=== PATIENT | male | born 1955 | race Caucasian/White ===

== ENCOUNTER 2016-07-11 12:55 | Day surgery (SDC) | payer MEDICARE, OTHER ==
[~2016-07-11 12:55] MED LIST: DIPHENHYDRAMINE HCL 50 MG/ML VIAL ONE; EPINEPHRINE INJ 1 MG/10 ML DISP.SYRIN ONE; FLUMAZENIL INJ 0.5 MG/5 ML VIAL IV ONE; GLUCAGON,HUMAN RECOMB 1 MG INJ ONE; NALOXONE HCL INJ/PF 0.4 MG/1 ML SDV ONE; ONDANSETRON HCL INJ/PF 4 MG/2 ML SDV ONE
[2016-07-11] MEDS: MIDAZOLAM 2 MG/2 ML INJ ONE ×2 (13:20→13:26)
[2016-07-11] MEDS: FENTANYL CITRATE INJ/PF 100 MCG/2 ML AMPUL ONE ×3 (13:22→13:28)
--- NOTE | 2016-07-11 13:38 | Operative Report ---
Operative Report DATE OF SURGERY: 07/11/16 Operative Report: The risks benefits and alternatives of the procedure explained to the patient in detail and informed consent is obtained. A GIF Olympus video scope was inserted into the patient's mouth and hypopharynx, the esophagus is identified intubated and insufflated, the scope was then advanced through the esophagus stomach and duodenum ,retroflexion maneuver is done, the esophagus stomach and first and second portions of the duodenum examined PREOPERATIVE DIAGNOSIS: Decreased appetite. Weight loss POSTOPERATIVE DIAGNOSIS: gastritis status post biopsy. Esophagitis versus Mccall's status post biopsy OPERATION: EGD with biopsy SURGEON: VIC WILLINGHAM ANESTHESIA: Moderate Sedation - 4 mg of Versed, 100 mcg of fentanyl. Conscious sedation monitoring time 30 minutes. TISSUE REMOVED OR ALTERED: Gastric specimen obtained to rule out Helicobacter pylori COMPLICATIONS: None. ESTIMATED BLOOD LOSS: None. INTRAOPERATIVE FINDINGS: Esophagitis versus Mccall's. Gastritis. First and second portions of the duodenum normal PROCEDURE: Patient tolerated the procedure well. No immediate postprocedure complications are noted. Patient discharged in good condition. Discharge date 07/11/2016. Discharge diet: Regular. Discharge activity: Regular. 2-3 week follow-up to discuss findings. We will wait on biopsies. Patient is instructed to call the office or proceed to the emergency room should there be any further problems or questions.
[2016-07-11 14:36] VITALS: BP 110/67
== END 2016-07-11 14:30 | disposition home or self-care (01) ==
LOC: END 12:55
PROVIDERS: ATTEND Internal Medicine Gastroenterology
PROC: 0DB58ZX Excision of Esophagus, Via Natural or Artificial Opening Endoscopic, Diagnostic (ICD-10-PCS; 2016-07-11)
PROC: 0DB68ZX Excision of Stomach, Via Natural or Artificial Opening Endoscopic, Diagnostic (ICD-10-PCS; principal; 2016-07-11 14:00)
DX: K29.50 Unspecified chronic gastritis without bleeding (principal); K20.9 Esophagitis, unspecified; I10 Essential (primary) hypertension; G89.29 Other chronic pain; Z79.891 Long term (current) use of opiate analgesic; Z79.899 Other long term (current) drug therapy
CPT/HCPCS: 43239; 88342 ×2; 88305 ×2; J2250; J3010; J0171; J1200; J1610; J2310; J2405; J3490

== ENCOUNTER → 2016-07-27 | Outpatient (CLI) | payer MEDICARE, OTHER ==
--- NOTE | 2016-07-27 13:13 | RADIOLOGY REPORT (SQ) ---
EXAM DESCRIPTION: CT LUNG CANCER SCREENING COMPLETED DATE/TIME: 07/27/2016 12:14 pm REASON FOR STUDY: ENCOUNTER FOR MALIGNANT NEOPLASM OF LUNG Z72.0 TOBACCO USE Z12.2 ENCNTR SCREEN F OR MALIGNANT NEOPLASM OF RESPIRATORY OR Has the patient had a Chest CT scan within the past year? No Was the patient offered tobacco cessation counseling? Yes Was the patient engaged in shared decision making for this test? Yes Does the patient have signs or symptoms of Lung Cancer? No Is the patient a smoker? Yes How many packs per year? 182 How many years since quitting smoking? Not applicable Patients age: 60 COMPARISON: None. TECHNIQUE: Low Dose CT scan performed of the chest without intravenous contrast for purposes of scre ening for lung cancer. Images reviewed with lung, soft tissue and bone windows. Reconstructed coron al and sagittal MPR images reviewed. All images stored on PACS. All CT scanners at this facility use dose modulation, iterative reconstruction, and/or weight based d osing when appropriate to reduce radiation dose to as low as reasonably achievable (ALARA). [facility]: Dose Right [facility]: CareDose [facility]: Dose Right [facility]: Teradose 4D [facility]: [employer] RADIATION DOSE: Up-to-date CT equipment and radiation dose reduction techniques were employed. CTDIv ol: 2.1 mGy. DLP: 91 mGy-cm. mGy. . LIMITATIONS: No technical limitations. FINDINGS: LUNGS AND PLEURA: No masses or nodules. No pleural effusions or calcifications. No pne umothorax. No scarring or interstitial changes. HILAR AND MEDIASTINAL STRUCTURES: No identified masses. No abnormal nodes. HEART AND VASCULAR STRUCTURES: No aortic aneurysm. No pericardial effusion. No cardiac devices. CORONARY ARTERY CALCIFICATIONS: No significant calcifications. UPPER ABDOMEN: No significant findings. THYROID AND OTHER SOFT TISSUES: No masses. No adenopathy. BONY STRUCTURES: No significant finding. OTHER: No other significant findings. IMPRESSION: NO SIGNIFICANT FINDING ON NON-CONTRASTED CHEST CT. NO OTHER CLINICALLY SIGNIFICANT/POTENTIALLY CLINICALLY SIGNIFICANT FINDINGS LUNGRADS: LUNGRADS: 1 NEGATIVE. NO NODULES, OR DEFINITELY BENIGN NODULES MODIFIER: NONE RECOMMENDATION: Continue annual screening with LDCT in 12 months. COMMENT: CRITERIA: No lung nodules. Nodules with specific calcifications: Complete, central, popcorn, concentric rings and fat containin g nodules. TECHNICAL DOCUMENTATION: JOB ID: [id number] Quality ID # [id number]: Final reports with documentation of one or more dose reduction techniques (e.g., Au tomated exposure control, adjustment of the mA and/or kV according to patient size, use of iterative reconstruction technique) 2010 [facility]
== END ==
LOC: RAD 12:00
PROVIDERS: ATTEND Internal Medicine
DX: Z12.2 Encounter for screening for malignant neoplasm of respiratory organs (principal); F17.210 Nicotine dependence, cigarettes, uncomplicated
CPT/HCPCS: G0297

== ENCOUNTER 2017-01-24 11:18 | Day surgery (SDC) | payer MEDICARE, OTHER ==
[~2017-01-24 11:18] MED LIST changes: +CHONDR SU A NA/HYALUR INTRAOC KIT (SURGICARE) ONE; -DIPHENHYDRAMINE HCL 50 MG/ML VIAL ONE; -EPINEPHRINE INJ 1 MG/10 ML DISP.SYRIN ONE; +EPINEPHRINE INJ/PF 1 MG/1 ML AMPULE ONE; -FLUMAZENIL INJ 0.5 MG/5 ML VIAL IV ONE; -GLUCAGON,HUMAN RECOMB 1 MG INJ ONE; +KETOROLAC TROMETHAMINE 0.45% 4 DROP/0.4 ML DROPERETTE OD PRN; +LIDOCAINE 1% INJ-PF (10 MG/ML) 30 ML SDV ONE; -NALOXONE HCL INJ/PF 0.4 MG/1 ML SDV ONE; -ONDANSETRON HCL INJ/PF 4 MG/2 ML SDV ONE; +TOBRAMYCIN SULFATE/DEXAMETH OPH OINTMENT 3.5 GM ONE
[2017-01-24] MEDS: BESIFLOXACIN HCL 0.6% OPH SUSP 5 ML BOTTLE OD PRN ×3 (12:02→13:00)
[2017-01-24] MEDS: CYCLOPENTOLATE 0.2%/PHENYLEPHRINE 1% OPH SOLN 2 ML OD PRN ×3 (12:02→12:22)
[2017-01-24] MEDS: TROPICAMIDE 1% OPH SOLN 3 ML OD PRN ×3 (12:02→12:22)
[2017-01-24] MEDS: TETRACAINE HCL 0.5% OPH SOLN 0.6 ML DROPERETTE OD PRN ×3 (12:03→12:44)
[2017-01-24] MEDS ORDERED: MIDAZOLAM 2 MG/2 ML INJ ONE ×2 (12:27)
== END 2017-01-24 13:47 | disposition home or self-care (01) ==
LOC: SC 11:18
PROVIDERS: ATTEND Ophthalmology
PROC: 08RJ3JZ Replacement of Right Lens with Synthetic Substitute, Percutaneous Approach (ICD-10-PCS; principal; 2017-01-24 12:45)
DX: H25.11 Age-related nuclear cataract, right eye (principal); I10 Essential (primary) hypertension; G89.29 Other chronic pain; F17.200 Nicotine dependence, unspecified, uncomplicated; Z79.899 Other long term (current) drug therapy
CPT/HCPCS: 66984; V2630; J2250; J3490 ×3; A9270; J0171; 142

== ENCOUNTER 2017-02-07 07:14 | Day surgery (SDC) | payer MEDICARE, OTHER ==
[~2017-02-07 07:14] MED LIST changes: -KETOROLAC TROMETHAMINE 0.45% 4 DROP/0.4 ML DROPERETTE OD PRN; +KETOROLAC TROMETHAMINE 0.45% 4 DROP/0.4 ML DROPERETTE OS PRN
[2017-02-07] MEDS: TROPICAMIDE 1% OPH SOLN 3 ML OS PRN ×3 (07:24→07:53)
[2017-02-07] MEDS: CYCLOPENTOLATE 0.2%/PHENYLEPHRINE 1% OPH SOLN 2 ML OS PRN ×3 (07:24→07:53)
[2017-02-07] MEDS: BESIFLOXACIN HCL 0.6% OPH SUSP 5 ML BOTTLE OS PRN ×3 (07:25→08:35)
[2017-02-07] MEDS: TETRACAINE HCL 0.5% OPH SOLN 0.6 ML DROPERETTE OS PRN ×3 (07:26→08:09)
[2017-02-07] MEDS ORDERED: FENTANYL CITRATE INJ/PF 100 MCG/2 ML AMPUL ONE (08:08)
[2017-02-07] MEDS ORDERED: MIDAZOLAM 2 MG/2 ML INJ ONE ×3 (08:08→08:18)
== END 2017-02-07 09:12 | disposition home or self-care (01) ==
LOC: SC 07:14
PROVIDERS: ATTEND Ophthalmology
PROC: 08RK3JZ Replacement of Left Lens with Synthetic Substitute, Percutaneous Approach (ICD-10-PCS; principal; 2017-02-07 08:15)
DX: H25.12 Age-related nuclear cataract, left eye (principal); Z98.41 Cataract extraction status, right eye; F17.210 Nicotine dependence, cigarettes, uncomplicated; I10 Essential (primary) hypertension; Z79.899 Other long term (current) drug therapy
CPT/HCPCS: 66984; V2630; J2250; J3490 ×3; A9270; J0171; J3010; 142

== ENCOUNTER 2017-03-20 06:01 | Day surgery (SDC) | payer MEDICARE, OTHER ==
[2017-03-13 10:13] LABS: ABSOLUTE BASOPHILS # (AUTO) 0.1 10^3/uL (0.0-0.2); ABSOLUTE EOSINOPHILS # (AUTO) 0.2 10^3/uL (0.0-0.6); ABSOLUTE LYMPHOCYTES (AUTO) 1.5 10^3/uL (0.5-4.7); ABSOLUTE MONOCYTES (AUTO) 0.8 10^3/uL (0.1-1.4); ABSOLUTE NEUT (AUTO) 5.4 10^3/uL (1.7-8.2); BASOPHILS % (AUTO) 0.7 % (0-2); EOSINOPHILS % (AUTO) 2.1 % (0-6); HEMOGLOBIN 13.5 g/dL (13.5-17.0); LYMPHOCYTES % (AUTO) 19.1 % (13-45); MEAN CORPUSCULAR HGB CONC 34.7 g/dL (32.0-36.0); MEAN CORPUSCULAR VOLUME 107 fl (80-97); PLATELET COUNT 238 10^3/uL (150-450); RED BLOOD COUNT 3.66 10^6/uL (4.35-5.55); RED CELL DISTRIBUTION WIDTH 14.6 % (11.5-14.0); SEGMENTED NEUTROPHILS % (AUTO) 68.1 % (42-78); TOTAL CELLS COUNTED % (AUTO) 100 %; WHITE BLOOD COUNT 7.9 10^3/uL (4.0-10.5)
[2017-03-13 10:31] LABS: APPEARANCE,URINE CLEAR; BILIRUBIN,URINE NEGATIVE (NEGATIVE); COLOR,URINE YELLOW; GLUCOSE, URINE NEGATIVE (NEGATIVE); KETONES,URINE NEGATIVE (NEGATIVE); LEUKOCYTE ESTERASE,URINE NEGATIVE (NEGATIVE); NITRITE,URINE NEGATIVE (NEGATIVE); PROTEIN,URINE NEGATIVE (NEGATIVE); URINE SPECIFIC GRAVITY 1.016; UROBILINOGEN,URINE NEGATIVE mg/dL (<2.0)
[2017-03-13 10:39] LABS: ANION GAP 9 (5-19); BLOOD UREA NITROGEN 21 mg/dL (7-20); CALCIUM 10.3 mg/dL (8.4-10.2); CARBON DIOXIDE 32 mmol/L (22-30); CHLORIDE 94 mmol/L (98-107); GLUCOSE 114 mg/dL (75-110); POTASSIUM 4.9 mmol/L (3.6-5.0); SODIUM 134.5 mmol/L (137-145)
--- NOTE | 2017-03-13 12:09 | RADIOLOGY REPORT (SQ) ---
EXAM DESCRIPTION: CHEST PA/LATERAL COMPLETED DATE/TIME: 03/13/2017 10:55 am REASON FOR STUDY: PRE OP G56.01 CARPAL TUNNEL SYNDROME, RIGHT UPPER LIMB G56.21 LESION OF ULNAR NE RVE, RIGHT UPPER LIMB COMPARISON: None. NUMBER OF VIEWS: Two view. TECHNIQUE: Frontal and lateral radiographic views of the chest acquired. LIMITATIONS: None. FINDINGS: LUNGS AND PLEURA: No opacities, masses or pneumothorax. No pleural effusion. Attenuated bl ood vessels and flattened stevan-diaphragms. MEDIASTINUM AND HILAR STRUCTURES: No masses. No contour abnormalities. HEART AND VASCULAR STRUCTURES: Heart normal in size and contour. No evidence for failure. BONES: No acute findings. HARDWARE: None in the chest. OTHER: No other significant finding. IMPRESSION: COPD. NO ACUTE RADIOGRAPHIC FINDING IN THE CHEST. TECHNICAL DOCUMENTATION: JOB ID: [id number] 1995 [employer]- All Rights Reserved
--- NOTE | 2017-03-13 13:00 | EKG REPORT ---
SEVERITY:- NORMAL ECG - SINUS RHYTHM : Confirmed by: Aryan Morales MD 13-Mar-2017 13:00:13
[~2017-03-20 06:01] MED LIST changes: +CEFAZOLIN 2 GM/D5W RTU 2 GM/50 ML RTUPB IV PRN; -CHONDR SU A NA/HYALUR INTRAOC KIT (SURGICARE) ONE; -EPINEPHRINE INJ/PF 1 MG/1 ML AMPULE ONE; -KETOROLAC TROMETHAMINE 0.45% 4 DROP/0.4 ML DROPERETTE OS PRN; +LACTATED RINGERS 1000 ML IV PRN; +LIDOCAINE 0.5% INJ-PF (5 MG/ML) 50 ML SDV SUBCUT PRN; -LIDOCAINE 1% INJ-PF (10 MG/ML) 30 ML SDV ONE; -TOBRAMYCIN SULFATE/DEXAMETH OPH OINTMENT 3.5 GM ONE
[2017-03-20] MEDS ORDERED: BUPIVACAINE HCL 0.5 % INJ/PF 30 ML SDV ONE (06:35)
[2017-03-20] MEDS ORDERED: LIDOCAINE 2% INJ-PF (20 MG/ML) 10 ML AMPUL ONE (06:36)
[2017-03-20] MEDS ORDERED: FENTANYL CITRATE INJ/PF 100 MCG/2 ML AMPUL ONE ×2 (06:36)
[2017-03-20] MEDS ORDERED: ACETAMINOPHEN 100 ML IV ONE (06:37)
[2017-03-20] MEDS ORDERED: MIDAZOLAM 2 MG/2 ML INJ ONE (06:37)
[2017-03-20] MEDS ORDERED: PROPOFOL INJ 200 MG/20 ML VIAL IV ONE (06:37)
[2017-03-20] MEDS ORDERED: ONDANSETRON HCL INJ/PF 4 MG/2 ML SDV ONE (06:37)
[2017-03-20] MEDS ORDERED: DIPHENHYDRAMINE HCL 50 MG/ML VIAL IV PRN (08:17)
[2017-03-20] MEDS ORDERED: MORPHINE SULFATE 10 MG/ML INJ IV PRN ×2 (08:17→09:09)
[2017-03-20] MEDS ORDERED: PROMETHAZINE HCL INJ 25 MG/1 ML VIAL IV PRN ×2 (08:17)
[2017-03-20] MEDS ORDERED: ONDANSETRON HCL INJ/PF 4 MG/2 ML SDV IV PRN ×2 (08:17→09:09)
[2017-03-20] MEDS ORDERED: OXYCODONE-ACETAMINOPHEN 5-325 MG TABLET PO PRN ×3 (08:17→09:09)
[2017-03-20] MEDS ORDERED: FENTANYL CITRATE INJ/PF 100 MCG/2 ML AMPUL IV PRN ×3 (08:17)
[2017-03-20] MEDS ORDERED: MEPERIDINE HCL/PF INJ 25 MG/1 ML DISP.SYRIN IV PRN (08:17)
--- NOTE | 2017-03-20 09:08 | PDOC DISCHARGE SUMMARY ---
Discharge Summary (SDC) - Discharge Final Diagnosis: Right carpal/cubital tunnel Date of Surgery: 03/20/17 Discharge Date: 03/20/17 Condition: Good Treatment or Instructions: Schedule Follow Up w/ Dr. Giovanni Vargas @ [facility] for [facility] to be seen in 10-14 days or as scheduled [place]: [place]: [place]: May remove dressing on postop day #3, keep incision covered and dry. Ice and elevate May begin finger range of motion attempting to make full fist. Stool softener of choice when on pain medication. Prescriptions: Oxycodone HCl/Acetaminophen [Percocet 5-325 mg Tablet] 1 - 2 tab PO ASDIR PRN # 30 tablet PRN Reason: Referrals: TENZIN PETERSEN MD [Primary Care Provider] - Discharge Diet: As Tolerated Respiratory Treatments at Home: Deep Breathing/Coughing Discharge Activity: Balance Activity w/Rest, No Lifting Over 10 Pounds, No Lifting/Push/Pulling Home Care Assistance: None Needed Report the Following to Your Physician Immediately: Fever over 101 Degrees, Unusual Bleeding, Redness, Swelling, Warmth, Drainage-Foul Smelling, Numbness, Tingling Sensation, IV Site Infection Signs
--- NOTE | 2017-03-20 09:09 | Operative Report ---
Operative Report DATE OF SURGERY: 03/20/17 PREOPERATIVE DIAGNOSIS: #1 Right severe ulnar neuropathy/cubital tunnel syndrome. #2 Right Carpal Tunl. syndrome POSTOPERATIVE DIAGNOSIS: Same OPERATION: #1 Right Cubital Tunl. release. #2 Right Open Carpal Tunl. release SURGEON: LIONEL LR ANESTHESIA: GA COMPLICATIONS: None ESTIMATED BLOOD LOSS: Minimal PROCEDURE: Indication for above procedure: 61-year-old male with long-standing history of numbness and tingling along with weakness in his right hand. Patient had clinical examination findings of denervation of his adductor pollicis and intrinsics. Neurodiagnostic testing was done confirming concomitant carpal and cubital tunnel syndrome. At that point discussed treatment options given the severity of patient's neuropathy decision was made to proceed with operative intervention understanding he may not get complete resolution of his symptoms. Risks and benefits were explained patient verbalized understanding consented for the procedure. Procedure In Detail: Patient was seen and evaluated in the preoperative holding area. The RIGHT upper extremity was initialized and marked. Patient received 2g of Ancef IV for bacterial prophylaxis. Patient was taken back to the operative room where transferred to the operative table and placed under general anesthesia. Once they were adequately anesthetized and a nonsterile tourniquet was placed on the upper extremity. A surgical team debriefing was performed ensuring all instrumentation was available, the surgical procedure was discussed with possible concerns reviewed. The upper extremity was prepped with chlorhexidine and alcohol and draped in a sterile fashion. A timeout was done identifying correct patient, procedure and extremity everyone in attendance agree with this and verbalized no concerns. The extremity was exsanguinated the tourniquet was inflated to 250 mmHg. A longitudinal skin incision was made centered over the cubital tunnel. Careful dissection was done through the overlying soft tissues any peripheral vasculature was carefully coagulated with bipolar cautery. The branches of the medial antebrachial cutaneous nerve were identified and protected throughout the entirety of the case. Once within the confines of the cubital tunnel the ulnar nerve was identified at the proximal aspect of the wound. At this level I carefully released a medial portion of the triceps and the medial intermuscular septum freeing the ulnar nerve proximally of any overlying soft tissue compression. I then continued to track the ulnar nerve distally releasing Keen's fascia. At the level of the FCU aponeurosis between the 2 heads of the FCU muscle. The fascia was released once again relieving any external compression from the ulnar nerve distally past the level of the first motor branch. I then freed up the nerve posteriorly ensuring there is no remaining soft tissue bands causing compression. During dissection of the nerve careful attention was directed at avoiding disruption of the ulnar nerve blood supply. The medial portion of the triceps was causing notable compression at the level of the cubital tunnel thus 7 mm of this area was incised to release the compression. Elbow range of motion was then done from full flexion to full extension with full flexion there was no evidence of anterior subluxation of the ulnar nerve from the groove. And thus I determined patient would not require anterior subcutaneous ulnar nerve transposition. I then turned my attention to the carpal tunnel release. Longitudinal skin incision was made just proximal to Sosa's cardinal line in line with the radial border of the ring finger. Sharp dissection was performed down to the palmar fascia. The palmar fascia was then split in line with the skin incision. Via blunt dissection the transverse carpal ligament was identified and split to the adipose just proximal to superficial palmar arch. Under direct visualization the proximal aspect of the transverse carpal ligament was then released including the volar antebrachial fascia. There was significant compression of the ulnar nerve at the level of the wrist flexion crease. Given patient's ulnar neuropathy I then bluntly dissected isolating the ulnar nerve within Guyon's canal. The flexor retinaculum was released and ulnar nerve neurolysed. There is no residual compression of the ulnar nerve appreciated. The wound was then copiously irrigated with normal saline. Skin incision was closed with interrupted 3-0 nylon suture. The tourniquet was then deflated. Compression was made to the wound for 2 minutes. I then identified any peripheral bleeding and carefully coagulated with bipolar cautery. The wound was then irrigated with normal saline. Subcutaneous tissues were closed with interrupted 3-0 Monocryl. Skin was closed with running subcuticular 4-0 Monocryl suture reinforced with Dermabond and Steri-Strips. Soft dressing was placed Sponge counts, instrument counts, needle counts counts were correct. Patient was then awoken from anesthesia. Transferred from the operating room table to the operating room stretcher. There was no intraoperative complications patient tolerated procedure well stable to PACU. Postoperative plan: Patient will follow-up in the office as scheduled which point we will proceed with wound check. Aime may begin gentle range of motion exercises but avoid any heavy lifting at her first postoperative appointment.
[2017-03-20 12:34] VITALS: BP 126/78
== END 2017-03-20 11:00 | disposition home or self-care (01) ==
LOC: OROUT 06:01
PROVIDERS: ATTEND Orthopaedic Surgery
PROC: 01N40ZZ Release Ulnar Nerve, Open Approach (ICD-10-PCS; principal; 2017-03-20 08:00)
PROC: 01N50ZZ Release Median Nerve, Open Approach (ICD-10-PCS; 2017-03-20 08:00)
DX: G56.01 Carpal tunnel syndrome, right upper limb (principal); G56.21 Lesion of ulnar nerve, right upper limb; I10 Essential (primary) hypertension; F17.210 Nicotine dependence, cigarettes, uncomplicated; Z79.899 Other long term (current) drug therapy; Z85.828 Personal history of other malignant neoplasm of skin
CPT/HCPCS: 93005; 36415 ×2; 84132; 85025; 80048; 81001; 71046; 93010; 64718; 64721; J2250; J3490 ×2; J3010; A9270; J2405; J2704; J0690; J0131; 1810

== ENCOUNTER 2017-06-14 07:52 | Day surgery (SDC) | payer MEDICARE, OTHER ==
[2017-06-14 08:43] LABS: INTERNATIONAL RATION (INR) 0.86; PROTHROMBIN TIME 12.2 SEC (11.4-15.4)
[2017-06-14 08:44] LABS: PARTIAL THROMBOPLASTIN TIME 28.4 SEC (23.5-35.8)
[2017-06-14] MEDS ORDERED: LIDOCAINE 1% INJ-PF (10 MG/ML) 30 ML SDV ONE (10:31)
--- NOTE | 2017-06-14 12:29 | RADIOLOGY REPORT (SQ) ---
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 LIMITATIONS: None. PROCEDURE: After written consent and assessment were obtained, the patient was brought into the fluo roscopy room and placed prone on the table. The patient's lower back was prepped in a sterile fashio n and an entry site was selected under live fluoroscopic guidance. The entry site was anesthetized wi th 4 mL of 1% lidocaine. A 22 gauge spinal needle was advanced through the skin and into the thecal sac at the level of L2-3. Contrast was injected into the thecal sac, with a small subdural injection . No further contrast was injected at this level. The right paracentral L4-5 level was localized un joy fluoroscopy. Local lidocaine for skin and soft tissue anesthesia. A 22 gauge spinal needle was successfully placed into the lumbar subarachnoid space and 12 mL of Isovue 0200 hours was injected wi thout complication. Following the procedure the needle was removed and a sterile bandage was placed of the site. CONTRAST: 12 mL Isovue 200 M. IMAGES ACQUIRED: Prone oblique and upright flexion and extension fluoroscopic digital images were obt ained. This was followed by CT of the lumbar spine with sagittal and coronal reconstructions. TECHNIQUE: After performing lumbar myelogram, axial images were acquired through the lumbar spine wi thout intravenous contrast. Images reviewed with lung, soft tissue and bone windows. Reconstructed coronal and sagittal MPR images reviewed. All images stored on PACS. All CT scanners at this facility use dose modulation, iterative reconstruction, and/or weight based d osing when appropriate to reduce radiation dose to as low as reasonably achievable (ALARA). [facility]: Dose Right [facility]: CareDose [facility]: Dose Right [facility]: Teradose 4D [facility]: [employer] FINDINGS: Fluoroscopic images demonstrate symmetric filling of the L4, L5, and S1 nerve roots. Lety ent is post remote prior lumbar fusion without significant central or foraminal encroachment at L4-5 or L5-S1. Transpedicular screws and dorsal fixation plates are present. At fluoroscopy, moderate to high-grade central canal stenosis is seen at L2-3 with effacement of CSF around the lumbar nerve roots. There is poor filling of the proximal bilateral L3 nerve roots. At fluoroscopy no central stenosis is seen at the L1 or L2 levels. Good filling of the L1 and L2 pro ximal nerve roots. At L3-4, there is disc space loss of height without significant central or forami nal encroachment on digital fluoroscopic radiographs. Postmyelogram CT: There is mild streak artifact related to bilateral transpedicular screws and dorsal fixation plates a t L4, L5, and S1. Because of the T12-L1 disc level is unremarkable. No central or foraminal encroachment. Conus is at the mid L1 vertebral body. At L1-2, mild diffuse posterior disc bulge and bony spurring is present with disc space loss of heigh t. Mild bilateral facet and ligament hypertrophy. Borderline central canal narrowing. No significa nt foraminal narrowing. At L2-3, there is a small amount of subdural or epidural contrast in the left spinal canal from unsuc cessful lumbar puncture. This tracks along the dorsal leftward aspect of the L2 vertebral body, cont rast may be in an epidural vein. Elsewhere at L2-3, moderate to high-grade central canal stenosis results from broad diffuse posterior disc bulging, slight retrolisthesis of L2 over L3, prominent dorsal epidural fat, and mild bilateral facet and ligament hypertrophy. This is best shown on axial image 39 and sagittal reconstruction im ages 18 through 25. Mild right foraminal narrowing at L2-3. Moderate left foraminal narrowing with partial effacement of the fat around the exiting left L2 nerve root. At L3-4, there is high-grade disc space loss of height with vacuum phenomenon. Minimal posterior dis c bulge and bony spurring. Bulky bilateral facet hypertrophy left greater than right. No central st enosis. No significant right foraminal narrowing. There is good filling of the right L3 nerve root sleeve. Moderate left foraminal narrowing with very mild truncation of filling of the left L3 nerve root sleeve at this level. At L4-5, patient is post fusion with hardware. No significant central or foraminal encroachment. At L5-S1, patient is post fusion with hardware. Old bilateral laminectomy. No significant central o r foraminal encroachment. IMPRESSION: Moderate to high-grade central canal stenosis at L2-3 COMMENT: Patient medication list reviewed: Yes- Quality ID# [id number]:Eligible professional attests to doc umenting in the medical record they obtained, updated, or reviewed the patient's current medications. TECHNICAL DOCUMENTATION: JOB ID: [id number] Quality ID # 436: Final reports with documentation of one or more dose reduction techniques (e.g., Au tomated exposure control, adjustment of the mA and/or kV according to patient size, use of iterative reconstruction technique) 2010 [employer]- All Rights Reserved Reading location - IP/workstation name: [email or web address]
[2017-06-14 14:18] VITALS: BP 151/78
== END 2017-06-14 13:30 | disposition home or self-care (01) ==
LOC: RAD 07:52
PROVIDERS: ATTEND Physician Assistant
DX: M54.16 Radiculopathy, lumbar region (principal); Z79.01 Long term (current) use of anticoagulants
CPT/HCPCS: 36415; 85610; 85730; 72265; 72132; J3490

== ENCOUNTER 2019-04-24 08:50 | Day surgery (SDC) | payer MEDICARE, OTHER ==
[~2019-04-24 08:50] MED LIST changes: -CEFAZOLIN 2 GM/D5W RTU 2 GM/50 ML RTUPB IV PRN; -LACTATED RINGERS 1000 ML IV PRN; -LIDOCAINE 0.5% INJ-PF (5 MG/ML) 50 ML SDV SUBCUT PRN; +PROPOFOL INJ 200 MG/20 ML VIAL IV ONE
[2019-04-24 11:12] VITALS: BP 134/97
--- NOTE | 2019-04-24 12:08 | Operative Report ---
Operative Report DATE OF SURGERY: 04/24/19 Operative Report: Risk, benefits and alternatives of the procedure including the risk of bleeding, perforation requiring surgery have been explained to the patient in detail and informed consent has been obtained. Patient is placed in a left, lateral decubital position. Timeout was called. Propofol medication is administered. Rectal examination is done which did not reveal any masses, tears or fissures. An Olympus videoscope was introduced into the patient's rectum. Scope was then carefully advanced all the way to the cecum. The cecum was identified by the usual anatomical landmarks including the ileocecal valve as well as the appendiceal office. Photodocumentation is obtained. Scope was then sequentially pulled back via the various segments of the colon including the ascending colon, pancreatic, transverse colon, splenic flexure, descending colon and finally into the rectosigmoid portions of the colon. Retroflexion maneuvers performed. PREOPERATIVE DIAGNOSIS: Change in bowel habits POSTOPERATIVE DIAGNOSIS: Colon polyp in the cecum which removed via snare polypectomy and retrieved. Sigmoid polyp which is removed via snare polypectomy and retrieved. Diverticulosis without any evidence of diverticulitis. internal hemorrhoids. Right side colon inflammation status post biopsy OPERATION: Colonoscopy with snare polypectomy. Colonoscopy with biopsy SURGEON: VIC WILLINGHAM ANESTHESIA: LMAC TISSUE REMOVED OR ALTERED: As noted above. COMPLICATIONS: None. ESTIMATED BLOOD LOSS: None. INTRAOPERATIVE FINDINGS: As noted above. PROCEDURE: Patient tolerated the procedure well. No immediate postprocedure complications are noted. Patient is discharged in good condition. Discharge date 04/24/2019. Discharge diet: Regular. Discharge activity: Regular. 2 to 3-week follow-up to discuss findings. Patient is instructed call the office or proceed to the emergency room Should there be any further problems or questions. 3 to 5-year surveillance colonoscopy.
== END 2019-04-24 11:06 | disposition home or self-care (01) ==
LOC: END 08:50
PROVIDERS: ATTEND Internal Medicine Gastroenterology
DX: D12.0 Benign neoplasm of cecum (principal); K63.5 Polyp of colon; K64.8 Other hemorrhoids; K52.9 Noninfective gastroenteritis and colitis, unspecified; F17.210 Nicotine dependence, cigarettes, uncomplicated; Z85.828 Personal history of other malignant neoplasm of skin
CPT/HCPCS: 45380; 45385; 88305 ×2; 00811; J2704; 811

== ENCOUNTER 2020-01-20 12:52 | Inpatient (IN) | payer MEDICARE, OTHER ==
[2020-01-20 13:44] LABS: ALBUMIN 3.4 g/dL (3.5-5.0); ALKALINE PHOSPHATASE 105 U/L (38-126); ANION GAP 19 (5-19); ASPARTATE AMINO TRANSFERASE 99 U/L (17-59); BILIRUBIN,DIRECT 0.7 mg/dL (0.0-0.4); BILIRUBIN,TOTAL 1.4 mg/dL (0.2-1.3); BLOOD UREA NITROGEN 73 mg/dL (7-20); CALCIUM 7.2 mg/dL (8.4-10.2); CARBON DIOXIDE 32 mmol/L (22-30); CHLORIDE 76 mmol/L (98-107); GLUCOSE 143 mg/dL (75-110); TOTAL PROTEIN 5.7 g/dL (6.3-8.2)
--- NOTE | 2020-01-20 13:54 | RADIOLOGY REPORT (SQ) ---
EXAM DESCRIPTION: CHEST SINGLE VIEW IMAGES COMPLETED DATE/TIME: 01/20/2020 1:44 pm REASON FOR STUDY: shortness of breath COMPARISON: 03/13/2017. NUMBER OF VIEWS: One view. TECHNIQUE: Single frontal radiographic view of the chest acquired. LIMITATIONS: None. FINDINGS: LUNGS AND PLEURA: No opacities, masses or pneumothorax. No pleural effusion. Attenuated bl ood vessels and flattened stevan-diaphragms. MEDIASTINUM AND HILAR STRUCTURES: No masses. Contour normal. HEART AND VASCULAR STRUCTURES: Heart normal in size. Normal vasculature. BONES: No acute findings. HARDWARE: Spinal stimulator electrodes. OTHER: No other significant finding. IMPRESSION: COPD. NO ACUTE RADIOGRAPHIC FINDING IN THE CHEST. TECHNICAL DOCUMENTATION: JOB ID: [id number] 2010 [employer]- All Rights Reserved Reading location - IP/workstation name: [email or web address]
[2020-01-20 13:57] LABS: ALCOHOL < 10 mg/dL (NONE DETECTED); POTASSIUM 2.4 mmol/L (3.6-5.0)
--- NOTE | 2020-01-20 13:57 | RADIOLOGY REPORT (SQ) ---
EXAM DESCRIPTION: CT CERVICAL SPINE WITHOUT IMAGES COMPLETED DATE/TIME: 01/20/2020 1:45 pm REASON FOR STUDY: fall/ams COMPARISON: None. TECHNIQUE: Axial images acquired through the cervical spine without intravenous contrast. Images re viewed with lung, soft tissue and bone windows. Reconstructed coronal and sagittal MPR images review ed. Images stored on PACS. All CT scanners at this facility use dose modulation, iterative reconstruction, and/or weight based d osing when appropriate to reduce radiation dose to as low as reasonably achievable (ALARA). [facility]: Dose Right [facility]: CareDose [facility]: Dose Right [facility]: Teradose 4D [facility]: [employer] RADIATION DOSE: CT Rad equipment meets quality standard of care and radiation dose reduction techniq ues were employed. CTDIvol: 14.0 mGy. DLP: 298 mGy-cm. mGy. LIMITATIONS: Motion artifact. FINDINGS: ALIGNMENT: Anatomic. MINERALIZATION: Normal. VERTEBRAL BODIES: No fractures or dislocation. DISCS: Multilevel disc space narrowing with osteophytes. FACETS, LATERAL MASSES, POSTERIOR ELEMENTS: Facet arthropathy. No fractures. No dislocation. No ac [place] findings. HARDWARE: None in the spine. VISUALIZED RIBS: No fractures. LUNG APICES AND SOFT TISSUES: No significant or acute findings. OTHER: No other significant finding. IMPRESSION: CHRONIC DEGENERATIVE CHANGES. NO ACUTE FINDINGS. TECHNICAL DOCUMENTATION: JOB ID: [id number] Quality ID # [id number]: Final reports with documentation of one or more dose reduction techniques (e.g., Au tomated exposure control, adjustment of the mA and/or kV according to patient size, use of iterative reconstruction technique) 2010 [employer]- All Rights Reserved Reading location - IP/workstation name: [email or web address]
--- NOTE | 2020-01-20 13:59 | RADIOLOGY REPORT (SQ) ---
EXAM DESCRIPTION: CT HEAD WITHOUT IMAGES COMPLETED DATE/TIME: 01/20/2020 1:45 pm REASON FOR STUDY: fall/ams COMPARISON: None. TECHNIQUE: Axial images acquired through the brain without intravenous contrast. Images reviewed wi th bone, brain and subdural windows. Additional sagittal and coronal reconstructions were generated. Images stored on PACS. All CT scanners at this facility use dose modulation, iterative reconstruction, and/or weight based d osing when appropriate to reduce radiation dose to as low as reasonably achievable (ALARA). [facility]: Dose Right [facility]: CareDose [facility]: Dose Right [facility]: Teradose 4D [facility]: Smart Jocoos RADIATION DOSE: CT Rad equipment meets quality standard of care and radiation dose reduction techniq ues were employed. CTDIvol: 53.2 mGy. DLP: 1124 mGy-cm. mGy. LIMITATIONS: None. FINDINGS: VENTRICLES: Slightly prominent. CEREBRUM: Mild cortical atrophy. No masses. No hemorrhage. No midline shift. No evidence for acut e infarction. Normal jernigan/white matter differentiation. No areas of low density in the white matter. CEREBELLUM: No masses. No hemorrhage. No alteration of density. No evidence for acute infarction. EXTRAAXIAL SPACES: No fluid collections. No masses. ORBITS AND GLOBE: No intra- or extraconal masses. Normal contour of globe without masses. CALVARIUM: No fracture. PARANASAL SINUSES: No fluid or mucosal thickening. SOFT TISSUES: No mass or hematoma. OTHER: No other significant finding. IMPRESSION: Mild involutional changes with no acute intracranial imaging finding. EVIDENCE OF ACUTE STROKE: NO. COMMENT: Quality ID # [id number]: Final reports with documentation of one or more dose reduction techniques (e.g., Automated exposure control, adjustment of the mA and/or kV according to patient size, use of iterative reconstruction technique) TECHNICAL DOCUMENTATION: JOB ID: [id number] 2010 [employer])- All Rights Reserved Reading location - IP/workstation name: [email or web address]
[2020-01-20] MEDS ORDERED: POTASSIUM CHLORIDE 10 MEQ TABLET.ER PO ONE (14:31)
[2020-01-20] MEDS ORDERED: NORMAL SALINE 1000 ML 1,000 ML IV ONE ×3 (14:33→17:49)
[2020-01-20] MEDS ORDERED: THIAMINE HCL 100 MG, FOLIC ACID 1 MG in NORMAL SALINE 250 ML IV ONE (14:33)
[2020-01-20 14:43] LABS: ABSOLUTE LYMPHOCYTES (AUTO) 0.7 10^3/uL (0.5-4.7); ABSOLUTE MONOCYTES (AUTO) 0.2 10^3/uL (0.1-1.4); ABSOLUTE NEUT (AUTO) 5.4 10^3/uL (1.7-8.2); BASOPHILS % (AUTO) 0.4 % (0-2); EOSINOPHILS % (AUTO) 0.1 % (0-6); HEMATOCRIT 32.4 % (37.9-51.0); HEMOGLOBIN 11.5 g/dL (13.5-17.0); MEAN CORPUSCULAR HEMOGLOBIN 36.9 pg (27.0-33.4); MEAN CORPUSCULAR HGB CONC 35.6 g/dL (32.0-36.0); MEAN CORPUSCULAR VOLUME 104 fl (80-97); MONOCYTES % (AUTO) 3.5 % (3-13); RED BLOOD COUNT 3.13 10^6/uL (4.35-5.55); RED CELL DISTRIBUTION WIDTH 15.7 % (11.5-14.0); TOTAL CELLS COUNTED % (AUTO) 100 %; WHITE BLOOD COUNT 6.4 10^3/uL (4.0-10.5)
[2020-01-20 15:07] LABS: APPEARANCE,URINE SLIGHTLY-CLOUDY; BILIRUBIN,URINE SMALL (NEGATIVE); COLOR,URINE AMBER; GLUCOSE, URINE NEGATIVE (NEGATIVE); KETONES,URINE NEGATIVE (NEGATIVE); LEUKOCYTE ESTERASE,URINE NEGATIVE (NEGATIVE); NITRITE,URINE NEGATIVE (NEGATIVE); PROTEIN,URINE 30 mg/dL (NEGATIVE); URINE SPECIFIC GRAVITY 1.017
--- NOTE | 2020-01-20 15:15 | ER Document Report ---
ED General - General Chief Complaint: Altered Mental Status Stated Complaint: DIFFICULTY BREATHING Time Seen by Provider: 01/20/20 12:57 Primary Care Provider: TENZIN PETERSEN MD [Primary Care Provider] - Follow up as needed Mode of Arrival: Medic Information source: Patient TRAVEL OUTSIDE OF THE [place] IN LAST 30 DAYS: No - HPI Notes: Patient arrives via ambulance. Patient's family found the patient altered. They called an ambulance due to patient's altered mental status. Patient apparently has been going through a divorce and according to family patient has been drinking lots of alcohol recently. EMS found the patient with bruising to the patient's forehead and right ear therefore patient was placed in a c-collar and brought here to the emergency department. Patient has no significant complaints of pain. He denies nausea. He denies any shortness of breath. Patient states he has been drinking rum and coke all evening. - Related Data Allergies/Adverse Reactions: No Known Allergies Allergy (Verified 01/20/20 12:56) Past Medical History - General Information source: Patient, Emergency Med Personnel - Social History Smoking Status: Former Smoker Frequency of alcohol use: Heavy Drug Abuse: None Family History: Reviewed & Not Pertinent - Past Medical History Cardiac Medical History: Reports: Hx Hypertension Denies: Hx Coronary Artery Disease, Hx Heart Attack Pulmonary Medical History: Denies: Hx Asthma, Hx Bronchitis, Hx COPD, Hx Pneumonia Neurological Medical History: Denies: Hx Cerebrovascular Accident, Hx Seizures GI Medical History: Denies: Hx Hepatitis, Hx Hiatal Hernia, Hx Ulcer Musculoskeletal Medical History: Denies Hx Arthritis Infectious Medical History: Denies: Hx Hepatitis Past Surgical History: Denies: Hx Open Heart Surgery, Hx Pacemaker - Immunizations Hx Diphtheria, Pertussis, Tetanus Vaccination: Yes Review of Systems - Review of Systems Constitutional: denies: Chills, Fever Cardiovascular: denies: Chest pain, Palpitations Respiratory: denies: Cough, Short of breath, Sputum -: Yes All other systems reviewed and negative Physical Exam - Vital signs Vitals: BP 106/81 01/20/20 12:54 Interpretation: Hypertensive - General General appearance: Alert In distress: None - HEENT Head: Normocephalic, Ecchymosis Eyes: Normal Pupils: PERRL Ears: Ecchymosis External canal: No: Blood in canal Mouth/Lips: Normal Mucous membranes: Moist Neck: Normal - Respiratory Respiratory status: No respiratory distress Chest status: Nontender Breath sounds: Normal Chest palpation: Normal - Cardiovascular Rhythm: Regular Heart sounds: Normal auscultation Murmur: No - Abdominal Inspection: Normal Distension: No distension Bowel sounds: Normal Tenderness: Nontender Organomegaly: No organomegaly - Back Back: Normal, Nontender - Extremities General upper extremity: Normal inspection, Nontender, Normal color, Normal ROM, Normal temperature General lower extremity: Normal inspection, Nontender, Normal color, Normal ROM, Normal temperature, Normal weight bearing. No: Roxanna's sign - Neurological Neuro grossly intact: Yes Cognition: Confused Orientation: Disoriented to time, Disoriented to events [place] Coma Scale Eye Opening: Spontaneous [place] Coma Scale Verbal: Confused [place] Coma Scale Motor: Obeys Commands [place] Coma Scale Total: 14 Speech: Normal Motor strength normal: LUE, RUE, LLE, RLE Sensory: Normal - Psychological Associated symptoms: Normal affect, Normal mood - Skin Skin Temperature: Warm Skin Moisture: Dry Skin Color: Erythema, Ecchymosis Course - Re-evaluation Re-evalutation: 01/20/20 15:15 Patient brought in for abnormal mental status. Patient admits to drinking alcoh ol however the current alcohol level is normal. Patient is confused to day as well as he is not able to tell me who the president is. He cannot tell me the month and year. He cannot tell me where he is at. He has several areas of ecchymosis but no evidence of acute intracranial or other intrathoracic or intra-abdominal injuries. His vital signs been relatively stable. he has hypokalemia and this is being addressed. He is also being rehydrated. No evidence of an obvious infection. Patient does have significantly low platelets however he has no evidence of active bleeding and has a normal hemoglobin hematocrit. - Vital Signs Vital signs: Temp Pulse Resp BP Pulse Ox 94.2 F L 13 109/79 98 01/20/20 13:10 01/20/20 14:02 01/20/20 14:02 01/20/20 14:02 - Laboratory Result Diagrams: 01/20/20 14:23 01/20/20 13:00 Lab Results Review: Critical Lab Results Reviewed Laboratory results interpreted by me: 01/20/20 01/20/20 01/20/20 13:00 13:00 14:23 RBC 3.13 L Hgb 11.5 L Hct 32.4 L MCV 104 H MCH 36.9 H RDW 15.7 H Plt Count 26 L* Lymph % (Auto) 11.0 L Seg Neutrophils % 85.0 H Sodium 127.0 L Potassium 2.4 L* Chloride 76 L Carbon Dioxide 32 H BUN 73 H Creatinine 2.44 H Est GFR ( Amer) 33 L Est GFR (MDRD) Non-Af 27 L Glucose 143 H Calcium 7.2 L Magnesium 1.3 L Total Bilirubin 1.4 H Direct Bilirubin 0.7 H AST 99 H ALT 56 H Total Protein 5.7 L Albumin 3.4 L Urine Protein Urine Blood Urine Bilirubin Urine Urobilinogen 01/20/20 14:45 RBC Hgb Hct MCV MCH RDW Plt Count Lymph % (Auto) Seg Neutrophils % Sodium Potassium Chloride Carbon Dioxide BUN Creatinine Est GFR ( Amer) Est GFR (MDRD) Non-Af Glucose Calcium Magnesium Total Bilirubin Direct Bilirubin AST ALT Total Protein Albumin Urine Protein 30 H Urine Blood SMALL H Urine Bilirubin SMALL H Urine Urobilinogen 2.0 H - Diagnostic Test Radiology Studies Status: Radiology Report Reviewed - EKG Interpretation by [facility] EKG shows normal: Sinus rhythm Rate: Normal - 85 Rhythm: NSR [place]/QRS: No: Right axis deviation, Left axis deviation Discharge - Discharge Clinical Impression: Thrombocytopenia, Hypokalemia, Dehydration Acute renal failure Qualifiers: Acute renal failure type: unspecified Qualified Code(s): N17.9 - Acute kidney failure, unspecified Altered mental status Qualifiers: Altered mental status type: disorientation Qualified Code(s): R41.0 - Disorientation, unspecified Hypothermia Qualifiers: Encounter type: initial encounter Qualified Code(s): T68.XXXA - Hypothermia, initial encounter Closed head injury Qualifiers: Encounter type: initial encounter Qualified Code(s): S09.90XA - Unspecified injury of head, initial encounter Contusion of right ear Qualifiers: Encounter type: initial encounter Qualified Code(s): S00.431A - Contusion of right ear, initial encounter Condition: Serious Disposition: ADMITTED INPATIENT Admitting Provider: Mandie (Hospitalist) Unit Admitted: Telemetry Referrals: TENZIN PETERSEN MD [Primary Care Provider] - Follow up as needed
[2020-01-20 15:55] LABS: PROTHROMBIN TIME 12.4 SEC (11.4-15.4)
[2020-01-20 15:57] LABS: PARTIAL THROMBOPLASTIN TIME 29.1 SEC (23.5-35.8)
[2020-01-20 16:02] LABS: FIBRINOGEN 454 mg/dL (209-497)
--- NOTE | 2020-01-20 16:20 | ADVANCED CARE ---
Attendance: Pratibha () Kirk (son) Madisyn (daughter) Resuscitation Status: Do Not Resuscitate Discussion: Spoke with family regarding code status and goals of care. His and his children are in agreement that he wants to be DNR/DNI and does not want "extraordinary measures" to keep him alive. He has had an exceedingly poor quality of life since August 2019 and has been progressively declining since that time. We discussed that he is very ill. I am concerned about septic shock, renal failure, possible alcohol withdrawal. They are understanding of his poor condition. Time Spent: >30 minutes
[2020-01-20] MEDS ORDERED: MAGNESIUM SULFATE 4 GM/100 ML RTUPB IV ONE (16:30)
[2020-01-20] MEDS ORDERED: VANCOMYCIN HCL 0 MG in DEXTROSE 5%-WATER 250 ML IV NR (16:30)
[2020-01-20] MEDS: POTASSI CL 20 MEQ/50 ML RIDER 20 MEQ/50 ML RTUPB IV SCH ×3 (16:57→21:45)
[2020-01-20] MEDS: POTASSI CL 40 MEQ/NS 1L 1,000 ML IV PRN (16:58)
[2020-01-20 17:19] LABS: C-REACTIVE PROTEIN 155.3 mg/L (<10.0)
--- NOTE | 2020-01-20 17:19 | PDOC H&P ---
History of Present Illness Admission Date/PCP: 01/20/20 15:41 TENZIN PETERSEN MD Patient complains of: AMS History of Present Illness: TENZIN CRYSTAL JR is a 64 year old male with PMH of hypertension, alcohol abuse, and chronic low back s/p lumbar fusion surgery and stimulator placement, who presented via EMS due to AMS. History obtained from EMS records, ED attending and family (, son and daughter) due to AMS. Mr. Crystal currently lives alone. He is from his , [place]. He has two adult children, Kirk and Madisyn, who check in on him regularly. All three note that he was seeing a back pain doctor in [place] (name unknown) for chronic LBP. He underwent a procedure in 08/[address] nerve stimulator in his lower back. The stimulator "sticks out" from his lower back and R hip and this actually caused him worse pain than prior to the procedure. Ever since August, he has had "excruciating," and uncontrolled pain as a result. He has gone back and forth to this doctor several times for pain medications, which he was not prescribed. He started "self-medicating" with alcohol, drinking over a gallon of liquor per week. His family note that he has had a physical and mental decline ever since, and that his personality has completely changed. He has become abusive, threatening and mean. He threatened the life of his , Pratibha, so she left their home and they are now . His children try to check in on him and bring him food regularly, but he does not let them inside his house. His children note that he has recently lost a tremendous amount of weight (unknown quantity). Mr. Crystal normally keeps in touch with his kids via text and phone calls, but had stopped responding to phone messages since Sunday, 01/17. Therefore, his children went to check on him today, and found him at home, altered, confused and disheveled. His home was in disarray, there was feces "everywhere" and there was reportedly bright red blood all over his pillows and sheets. His children state that the patient has been telling them that he is vomiting and coughing up blood (for an unknown period of time). His notes that he has been incontinent of stool and urine for months, ever since he started drinking in excess, but this has been progressively worsening over the last few months. None of them have ever witnessed him to have a seizure and are not aware of him having any seizures. They all note that he falls very frequently and is very unsteady on his feet. They state that, ever since his nerve stimulator surgery in August, he has had "leg twitches" and that his legs give out when he tries to ambulate. Of note, his family found several containers of untouched food all around his home. It appears that he has had nothing to eat for at least several days. EMS reportedly found him incoherent, hypothermic and hypotensive. Past Medical History Cardiac Medical History: Reports: Hypertension Denies: Coronary Artery Disease, Myocardial Infarction Pulmonary Medical History: Denies: Asthma, Bronchitis, Chronic Obstructive Pulmonary Disease (COPD), Pneumonia Neurological Medical History: Denies: Ischemic CVA, Seizures Endocrine Medical History: Denies: Diabetes Mellitus Type 2 Renal/ Medical History: Denies: Chronic Kidney Disease GI Medical History: Denies: Hepatitis, Hiatal Hernia Musculoskeltal Medical History: Denies: Arthritis Psychiatric Medical History: Reports: Alcohol Dependency Hematology: Denies: Anemia, Sickle Cell Disease Past Surgical History Past Surgical History: Reports: Other - lumbar spine fusion Denies: Pacemaker Social History Information Source: Relative Lives with: Alone Smoking Status: Former Smoker Frequency of Alcohol Use: Heavy Hx Recreational Drug Use: No Hx Prescription Drug Abuse: No - Advance Directive Resuscitation Status: Do Not Resuscitate Surrogate healthcare decision maker:: , Pratibha Family History Family History: Reviewed & Not Pertinent Parental Family History Reviewed: Yes Children Family History Reviewed: Yes Sibling(s) Family History Reviewed.: Yes Medication/Allergy Home Medications: Bupropion HCl [Bupropion HCl Sr] 150 mg PO DAILY 04/24/19 Hydroxyzine Pamoate [Vistaril 25 mg Capsule] 1 cap PO DAILY 04/24/19 Lidocaine [Lidoderm 5% (700 mg) Transdermal Patch] 1 patch DAILY 04/24/19 Losartan Potassium [Cozaar 25 mg Tablet] 25 mg PO DAILY 04/24/19 Allergies/Adverse Reactions: No Known Allergies Allergy (Verified 01/20/20 12:56) Review of Systems ROS unobtainable: Due to mental status Physical Exam Vital Signs: Temp Pulse Resp BP Pulse Ox 94.2 F L 13 109/79 98 01/20/20 13:10 01/20/20 14:02 01/20/20 14:02 01/20/20 14:02 Intake & Output 01/19/20 01/20/20 01/21/20 06:59 06:59 06:59 Intake Total 1251.2 Balance 1251.2 General appearance: PRESENT: no acute distress, thin Head exam: PRESENT: other - bleeding from R ear, bruises on head and face Eye exam: ABSENT: scleral icterus Ear exam: PRESENT: bleeding Mouth exam: PRESENT: dry mucosa Teeth exam: PRESENT: poor dentation Throat exam: ABSENT: post pharyngeal erythema Neck exam: ABSENT: JVD, thyromegaly Respiratory exam: PRESENT: clear to auscultation katrina, tachypnea. ABSENT: crackles, rhonchi, wheezes Cardiovascular exam: PRESENT: RRR GI/Abdominal exam: PRESENT: normal bowel sounds, soft, tenderness - diffuse. ABSENT: ascites, distended, firm, guarding, mass, Medrano's sign, rebound, rigid Rectal exam: PRESENT: deferred Gentrourinary exam: PRESENT: indwelling catheter Extremities exam: PRESENT: other - R hip erythema/bruising. ABSENT: pedal edema Musculoskeletal exam: PRESENT: other - nerve stimulator in lower back, no spinal TTP Neurological exam: PRESENT: altered, oriented to person. ABSENT: oriented to place, oriented to time, oriented to situation Psychiatric exam: PRESENT: flat affect Skin exam: PRESENT: other - diffuse bruising on limbs. ABSENT: jaundice, rash Results Laboratory Results: 01/20/20 14:23 01/20/20 13:00 01/20/20 01/20/20 01/20/20 13:00 13:00 13:00 WBC Cancelled RBC Cancelled Hgb Cancelled Hct Cancelled MCV Cancelled MCH Cancelled MCHC Cancelled RDW Cancelled Plt Count Cancelled Seg Neutrophils % Cancelled Sodium 127.0 L Potassium 2.4 L* Chloride 76 L Carbon Dioxide 32 H Anion Gap 19 BUN 73 H Creatinine 2.44 H Est GFR ( Amer) 33 L Glucose 143 H Lactic Acid Calcium 7.2 L Magnesium 1.3 L Total Bilirubin 1.4 H AST 99 H Alkaline Phosphatase 105 Total Protein 5.7 L Albumin 3.4 L Urine Color Urine Appearance Urine pH Ur Specific Edgar Urine Protein Urine Glucose (UA) Urine Ketones Urine Blood Urine Nitrite Ur Leukocyte Esterase Urine WBC (Auto) Urine RBC (Auto) 01/20/20 01/20/20 01/20/20 13:21 14:23 14:45 WBC 6.4 RBC 3.13 L Hgb 11.5 L Hct 32.4 L MCV 104 H MCH 36.9 H MCHC 35.6 RDW 15.7 H Plt Count 26 L* Seg Neutrophils % 85.0 H Sodium Potassium Chloride Carbon Dioxide Anion Gap BUN Creatinine Est GFR ( Amer) Glucose Lactic Acid 3.5 H Calcium Magnesium Total Bilirubin AST Alkaline Phosphatase Total Protein Albumin Urine Color AAKASH Urine Appearance SLIGHTLY-CLOUDY Urine pH 5.0 Ur Specific Edgar 1.017 Urine Protein 30 H Urine Glucose (UA) NEGATIVE Urine Ketones NEGATIVE Urine Blood SMALL H Urine Nitrite NEGATIVE Ur Leukocyte Esterase NEGATIVE Urine WBC (Auto) 1 Urine RBC (Auto) 1 01/20/20 13:00 Troponin I < 0.012 Impressions: Chest X-Ray 01/20/20 12:59 IMPRESSION: COPD. NO ACUTE RADIOGRAPHIC FINDING IN THE CHEST. Cervical Spine CT 01/20/20 13:04 IMPRESSION: CHRONIC DEGENERATIVE CHANGES. NO ACUTE FINDINGS. Head CT 01/20/20 13:04 IMPRESSION: Mild involutional changes with no acute intracranial imaging finding. EVIDENCE OF ACUTE STROKE: NO. Assessment and Plan - Diagnosis (1) Sepsis associated hypotension Is this a current diagnosis for this admission?: Yes (2) HERMELINDO (acute kidney injury) Is this a current diagnosis for this admission?: Yes (3) Severe protein-calorie malnutrition Is this a current diagnosis for this admission?: Yes (4) Wernicke encephalopathy Is this a current diagnosis for this admission?: Yes (5) Frequent falls Is this a current diagnosis for this admission?: Yes (6) Hyponatremia Is this a current diagnosis for this admission?: Yes (7) Acute renal failure Qualifiers: Acute renal failure type: unspecified Qualified Code(s): N17.9 - Acute kidney failure, unspecified Is this a current diagnosis for this admission?: Yes (8) Altered mental status Qualifiers: Altered mental status type: delirium Qualified Code(s): R41.0 - Disorientation, unspecified Is this a current diagnosis for this admission?: Yes (9) Closed head injury Qualifiers: Encounter type: initial encounter Qualified Code(s): S09.90XA - Unspecified injury of head, initial encounter Is this a current diagnosis for this admission?: Yes (10) Contusion of right ear Qualifiers: Encounter type: initial encounter Qualified Code(s): S00.431A - Contusion of right ear, initial encounter Is this a current diagnosis for this admission?: Yes (11) Dehydration Is this a current diagnosis for this admission?: Yes (12) Hypokalemia Is this a current diagnosis for this admission?: Yes (13) Hypomagnesemia Is this a current diagnosis for this admission?: Yes (14) Hypothermia Qualifiers: Encounter type: initial encounter Qualified Code(s): T68.XXXA - Hypothermia, initial encounter Is this a current diagnosis for this admission?: Yes (15) Thrombocytopenia Is this a current diagnosis for this admission?: Yes - Plan Summary Summary: TENZIN CRYSTAL JR is a 64 year old male with PMH of hypertension, alcohol abuse, and chronic low back s/p lumbar fusion surgery and stimulator placement, who presented via EMS due to AMS. He lives alone. He is from his , [place]. He has two adult children, Kirk and Madisyn, who check in on him regularly. All three note that he was seeing a back pain doctor in [place] (name unknown) for chronic LBP. He underwent a procedure in 08/[address] a nerve stimulator in his lower back. The stimulator "sticks out" from his lower back and R hip and this actually caused him worse pain than prior to the procedure. Ever since August, he has had "excruciating," and uncontrolled pain as a result. He has gone back and forth to this doctor several times for pain medications, which he was not prescribed. He started "self-medicating" with alcohol, drinking over a gallon of liquor per week. His family note that he has had a physical and mental decline ever since, and that his personality has completely changed. He has become abusive, threatening and mean. He threatened the life of his , Pratibha, so she left their home and they are now . His children try to check in on him and bring him food regularly, but he does not let them inside his house. His children note that he has recently lost a tremendous amount of weight (unknown quantity). Mr. Crystal normally keeps in touch with his kids via text and phone calls, but had stopped responding to phone messages since Sunday, 01/17. Therefore, his children went to check on him on 01/19, and found him at home, altered, confused and disheveled. His home was in disarray, there was feces "everywhere" and there was reportedly bright red blood all over his pillows and sheets. His children state that the patient has been telling them that he is vomiting and coughing up blood (for an unknown period of time). His notes that he has been incontinent of stool and urine for months, ever since he started drinking in excess, but this has been progressively worsening over the last few months. None of them have ever witnessed him to have a seizure and are not aware of him having any seizures. They all note that he falls very frequently and is very unsteady on his feet. They state that, ever since his nerve stimulator surgery in August, he has had "leg twitches" and that his legs give out when he tries to ambulate. Of note, his family found several containers of untouched food all around his home. It appears that he has had nothing to eat for at least several days. I am concerned that patient has likely been down for quite some time before being found. History is unclear as to whether he has had an acute change in his mental status or a gradual decline. His family note that he has been less coherent in general for the last 2-3 weeks, but all of them thought this was just due to alcohol intoxication. Patient himself tells me that he has been drinking all night, but he has an undetectable alcohol level. Perhaps he has been drinking something other than liquor. He appears quite dehydrated and di sheveled. He is clearly disoriented and has been having frequent falls. Based on VS and labs, he is at risk for sepsis. Concern for Sepsis of Unknown Etiology: he presented with encephalopathy, hypothermia, hypotension, HERMELINDO, thrombocytopenia and elevated lactate. He is at h igh risk for sepsis and septic shock. He should have several more liters of IVF and frequent vitals. I have ordered BCx x2, UCx, Covid testing and rodriguez-CT scan of the chest/abdomen/pelvis and R hip. He could have bacteremia related to the surgical hardware to his body. Given h/o profuse watery diarrhea and immunocompromised health status, he should have stool studies including C diff toxin. - start broad spectrum antibiotics with vancomycin/cefepime - follow up results of cultures and stool studies - VS Q4H - aggressive IVF resuscitation Acute on Chronic Encephalopathy: may be related to heavy alcohol use, dehydration and/or sepsis. He is at risk for Wernicke encephalopathy and would benefit from high dose thiamine repletion. He may have undiagnosed dementia r elated to long-standing alcohol abuse. - CT head w/o acute findings - thiamine 500 mg IV Q8H x2 days followed by 100 mg PO TID x2 weeks followed by 100 mg PO daily indefinitely Hypotension: due to dehydration and possibly sepsis. - aggressive IVF resuscitation Lactic Acidosis: due to dehydration and possibly sepsis. - management as per above HERMELINDO: due to dehydration and possibly sepsis. - anticipate improvement with IVF resuscitation Thrombocytopenia: due to sepsis versus alcohol abuse. - check DIC labs - avoid Lovenox/heparin - transfuse for >50K if active bleeding or >10K otherwise Anemia: likely due to alcohol abuse. Family notes seeing "bright red blood on pillows" at home but he has had no evidence of active bleeding here. Anticipate some decrease in H/H with aggressive IVF resuscitation as he is likely hemoconcentrated right now. - check iron studies - T&S - transfuse for goal >7 Alcohol Abuse: at risk for withdrawal, although he has no known history of alcohol withdrawal. - CIWA Q2H - seizure precautions Frequent Falls: likely due to alcohol intoxication and encephalopathy. Consider PT/OT consultation when above acute issues have been addressed and he is more stable. - fall precautions Severe Protein Calorie Malnutrition: likely due to alcohol abuse and possibly also depression. - plant physiologist consult Hypokalemia Hypomagnesemia Hyponatremia - multiple electrolyte abnormalities likely due to dehydration, poor oral intake and alcohol abuse - begin aggressive IV repletion of electrolytes - telemetry DVT ppx: avoid Lovenox/Heparin given PLT count - Time Time Spent with patient: 35 or more minutes Anticipated Discharge Disposition: [facility] Anticipated Discharge Timeframe: within 72 hours
[2020-01-20 17:23] LABS: ABSOLUTE RETICS # 0.006 10^6/uL (0.028-0.122)
[2020-01-20 17:24] LABS: VENOUS BLOOD HCO3 32.1 mmol/L (20-32); VENOUS BLOOD PCO2 38.3 mmHg (35-63); VENOUS BLOOD PH 7.54 (7.30-7.42)
[2020-01-20 17:29] LABS: IRON(TIBC) 129.6 ug/dL (49-181)
--- NOTE | 2020-01-20 17:50 | EKG REPORT ---
SEVERITY:- ABNORMAL ECG - SINUS RHYTHM JHOANA, CONSIDER BIATRIAL ABNORMALITIES NONSPECIFIC INTRAVENTRICULAR CONDUCTION DELAY ST DEPRESSION, CONSIDER ISCHEMIA, LAT LEADS : Confirmed by: Fay Fuentes 20-Jan-2020 17:50:15
--- NOTE | 2020-01-20 18:26 | RADIOLOGY REPORT (SQ) ---
EXAM DESCRIPTION: CT RT LOWER EXTREMITY WITHOUT IMAGES COMPLETED DATE/TIME: 01/20/2020 4:57 pm REASON FOR STUDY: right hip bruise s/p fall COMPARISON: None. TECHNIQUE: CT scan of the right hip performed without intravenous or oral contrast. The images supp lement the included portions of the femurs on the CT of the abdomen and pelvis. Images reviewed with soft tissue and bone windows. Reconstructed coronal and sagittal MPR images reviewed. All images s tored on PACS. All CT scanners at this facility use dose modulation, iterative reconstruction, and/or weight based d osing when appropriate to reduce radiation dose to as low as reasonably achievable (ALARA). [facility]: Dose Right [facility]: CareDose [facility]: Dose Right [facility]: Teradose 4D [facility]: Smart [employer] RADIATION DOSE: CT Rad equipment meets quality standard of care and radiation dose reduction techniq ues were employed. CTDIvol: 4.1 mGy. DLP: 129 mGy-cm. mGy. LIMITATIONS: None. FINDINGS: PELVIC BONES: No acute fracture. No worrisome bone lesions. VISUALIZED SPINE: No acute findings. SYMPTOMATIC HIP: No acute fracture or dislocation. No worrisome bone lesions. OPPOSITE HIP: Not included. PELVIC SOFT TISSUES: No significant findings. EXTRAPELVIC SOFT TISSUES: No significant findings. OTHER: No other significant finding. IMPRESSION: NO ACUTE OR SIGNIFICANT FINDINGS IN THE HIP OR PELVIS. TECHNICAL DOCUMENTATION: JOB ID: [id number] Quality ID # [id number]: Final reports with documentation of one or more dose reduction techniques (e.g., Au tomated exposure control, adjustment of the mA and/or kV according to patient size, use of iterative reconstruction technique) 2010 [employer]- All Rights Reserved Reading location - IP/workstation name: [email or web address]
--- NOTE | 2020-01-20 18:34 | RADIOLOGY REPORT (SQ) ---
EXAM DESCRIPTION: CT ABD/PELVIS NO ORAL OR IV IMAGES COMPLETED DATE/TIME: 01/20/2020 4:57 pm REASON FOR STUDY: sepsis of unknown etiology COMPARISON: None. TECHNIQUE: CT scan of the abdomen and pelvis performed without intravenous or oral contrast. Images reviewed with lung, soft tissue, and bone windows. Reconstructed coronal and sagittal MPR images revi ewed. All images stored on PACS. All CT scanners at this facility use dose modulation, iterative reconstruction, and/or weight based d osing when appropriate to reduce radiation dose to as low as reasonably achievable (ALARA). [facility]: Dose Right [facility]: CareDose [facility]: Dose Right [facility]: Teradose 4D [facility]: [employer] RADIATION DOSE: mGy. LIMITATIONS: None. FINDINGS: LOWER CHEST: See separate report of the CT of the chest. NON-CONTRASTED LIVER, SPLEEN, ADRENALS: There may be a 15 mm cyst in the dome of the liver. The sple en and adrenal glands are normal. PANCREAS: No masses. No peripancreatic inflammatory changes. GALLBLADDER: Not identified. RIGHT KIDNEY AND URETER: Horseshoe kidney. No masses. No significant calcifications. No hydronep hrosis or hydroureter. LEFT KIDNEY AND URETER: Horseshoe kidney. No masses. No significant calcifications. No hydroneph rosis or hydroureter. AORTA AND RETROPERITONEUM: No aneurysm. No retroperitoneal masses or adenopathy. BOWEL AND PERITONEAL CAVITY: Mild descending and sigmoid diverticulosis with no acute inflammation. Retained stool. No obvious bowel mass. APPENDIX: Not identified. PELVIS, BLADDER, AND ABDOMINAL WALL:There is a Hdez catheter in the urinary bladder. No pelvic mass or fluid collection is seen. BONES: Spinal hardware from L2-S1. OTHER: No other significant finding. IMPRESSION: Possible 15 mm liver cyst. Mild diverticulosis coli with no acute inflammation. Meg soto. COMMENT: Quality ID # [id number]: Final reports with documentation of one or more dose reduction techniques (e.g., Automated exposure control, adjustment of the mA and/or kV according to patient size, use of iterative reconstruction technique) TECHNICAL DOCUMENTATION: JOB ID: [id number] 2010 [employer]- All Rights Reserved Reading location - IP/workstation name: [email or web address]
[2020-01-20 18:36] LABS: FOLATE 2.93 ng/mL (>2.76)
--- NOTE | 2020-01-20 18:36 | RADIOLOGY REPORT (SQ) ---
EXAM DESCRIPTION: CT CHEST WITHOUT IMAGES COMPLETED DATE/TIME: 01/20/2020 4:57 pm REASON FOR STUDY: sepsis of unknown etiology COMPARISON: None. TECHNIQUE: CT scan performed of the chest without intravenous contrast. Images reviewed with lung, soft tissue and bone windows. Reconstructed coronal and sagittal MPR images reviewed. All images st ored on PACS. All CT scanners at this facility use dose modulation, iterative reconstruction, and/or weight based d osing when appropriate to reduce radiation dose to as low as reasonably achievable (ALARA). [facility]: Dose Right [facility]: CareDose [facility]: Dose Right [facility]: Teradose 4D [facility]: [employer] RADIATION DOSE: CT Rad equipment meets quality standard of care and radiation dose reduction techniq ues were employed. CTDIvol: 6.9 mGy. DLP: 524 mGy-cm. mGy. LIMITATIONS: No technical limitations. FINDINGS: LUNGS AND PLEURA: Centrilobular emphysematous changes. No infiltrate or effusion. No mas s. HILAR AND MEDIASTINAL STRUCTURES: No identified masses or abnormal nodes. No obvious aneurysm. HEART AND VASCULAR STRUCTURES: No aneurysm. No pericardial effusion. UPPER ABDOMEN: See separate report of the CT of the abdomen. THYROID AND OTHER SOFT TISSUES: No masses. No adenopathy. BONES: No significant finding. HARDWARE: None in the chest. OTHER: No other significant findings. IMPRESSION: Pulmonary emphysema. No acute findings in the thorax. TECHNICAL DOCUMENTATION: JOB ID: [id number] Quality ID # [id number]: Final reports with documentation of one or more dose reduction techniques (e.g., Au tomated exposure control, adjustment of the mA and/or kV according to patient size, use of iterative reconstruction technique) 2010 [employer]- All Rights Reserved Reading location - IP/workstation name: [email or web address]
[2020-01-20] MEDS: CEFEPIME 2 GM/D5W RTU 2 GM/50 ML RTUPB IV SCH (18:48)
[2020-01-20] MEDS ORDERED: VANCOMYCIN HCL 1,500 MG in DEXTROSE 5%-WATER 250 ML IV ONE (20:00)
[2020-01-20] MEDS: THIAMINE HCL 500 MG in NORMAL SALINE 250 ML IV SCH (21:45)
[2020-01-20 23:02] LABS: URINE AMPHETAMINES SCREEN NEGATIVE; URINE BARBITURATES SCREEN NEGATIVE; URINE BENZODIAZEPINES SCREEN NEGATIVE; URINE COCAINE SCREEN NEGATIVE; URINE METHADONE SCREEN NEGATIVE; URINE PHENCYCLIDINE SCREEN NEGATIVE
[2020-01-20 23:06] LABS: URINE MARIJUANA (THC) SCREEN UNCONFIRMED POSITIVE
[2020-01-21] MEDS: POTASSI CL 20 MEQ/50 ML RIDER 20 MEQ/50 ML RTUPB IV SCH (00:06)
[2020-01-21] MEDS ORDERED: CEFEPIME 2 GM/D5W RTU 2 GM/50 ML RTUPB IV ONE (05:57)
[2020-01-21] MEDS: THIAMINE HCL 500 MG in NORMAL SALINE 250 ML IV SCH ×3 (06:23→23:17)
[2020-01-21] MEDS: CEFEPIME 2 GM/D5W RTU 2 GM/50 ML RTUPB IV SCH (06:23)
[2020-01-21] MEDS: POTASSI CL 40 MEQ/NS 1L 1,000 ML IV PRN ×2 (06:23→23:16)
[2020-01-21 07:21] LABS: ABSOLUTE LYMPHOCYTES (AUTO) 0.8 10^3/uL (0.5-4.7); ABSOLUTE MONOCYTES (AUTO) 0.4 10^3/uL (0.1-1.4); BASOPHILS % (AUTO) 0.3 % (0-2); EOSINOPHILS % (AUTO) 0.5 % (0-6); HEMATOCRIT 25.5 % (37.9-51.0); LYMPHOCYTES % (AUTO) 19.1 % (13-45); MEAN CORPUSCULAR HEMOGLOBIN 37.2 pg (27.0-33.4); MEAN CORPUSCULAR HGB CONC 35.2 g/dL (32.0-36.0); MEAN CORPUSCULAR VOLUME 106 fl (80-97); MONOCYTES % (AUTO) 8.6 % (3-13); RED BLOOD COUNT 2.41 10^6/uL (4.35-5.55); SEGMENTED NEUTROPHILS % (AUTO) 71.5 % (42-78); TOTAL CELLS COUNTED % (AUTO) 100 %; WHITE BLOOD COUNT 4.3 10^3/uL (4.0-10.5)
[2020-01-21 07:34] LABS: PLATELET COUNT 26 10^3/uL (150-450)
[2020-01-21 07:46] LABS: ALBUMIN 2.5 g/dL (3.5-5.0); ALKALINE PHOSPHATASE 88 U/L (38-126); ANION GAP 6 (5-19); ASPARTATE AMINO TRANSFERASE 73 U/L (17-59); BILIRUBIN,DIRECT 0.4 mg/dL (0.0-0.4); BILIRUBIN,TOTAL 0.8 mg/dL (0.2-1.3); BLOOD UREA NITROGEN 66 mg/dL (7-20); CARBON DIOXIDE 31 mmol/L (22-30); CHLORIDE 95 mmol/L (98-107); GLUCOSE 90 mg/dL (75-110); TOTAL PROTEIN 4.7 g/dL (6.3-8.2)
[2020-01-21 08:06] LABS: POTASSIUM 3.4 mmol/L (3.6-5.0)
[2020-01-21 08:09] LABS: PLATELET COUNT 18 10^3/uL (150-450)
[2020-01-21] MEDS: CALCIUM GLUC IN NACL, ISO-OSM 1 GM/50 ML RTUPB IV SCH ×2 (09:40→11:48)
[2020-01-21 13:32] LABS: PATH REVIEW PATHOLOGIST REVIEWED
--- NOTE | 2020-01-21 17:49 | PDOC PROGRESS REPORT ---
Subjective Date:: 01/21/20 Subjective:: No adverse events overnight. His mental status has improved a little bit, but te crockett still confabulating quite a bit. His daughter was in the room with him and she expressed her concern that this has been developing for several weeks. Apparently he and his a few weeks ago, and he has been by himself most of the time since then. His daughter says that he has been drinking heavily for at least the past several months. She does not know how long the bottles have been accumulating, but when a friend went over to clean up his house recently, she found 21 1/2 gallon empty bottles of liquor. His left on December 25. He apparently has not been eating. His daughter has been bringing food to him periodically but none of it is getting eaten. His daughter says she last saw him on , and last spoke to him Sunday evening. He was found Sunday morning. Reason For Visit: HERMELINDO, AMI, SEPSIS Physical Exam Vital Signs: Temp Pulse Resp BP Pulse Ox 98.0 F 79 20 102/55 L 88 L 01/21/20 15:09 01/21/20 15:09 01/21/20 15:09 01/21/20 15:09 01/21/20 15:09 Intake & Output 01/20/20 01/21/20 01/22/20 06:59 06:59 06:59 Intake Total 5106.2 305 Output Total 2075 Balance 3031.2 305 Weight 67.8 kg General appearance: PRESENT: no acute distress, cooperative, disheveled, thin Respiratory exam: PRESENT: clear to auscultation katrina, symmetrical, unlabored. ABSENT: accessory muscle use, chest wall tenderness, crackles, prolonged expiratory phas, rhonchi, tachypnea, wheezes Cardiovascular exam: PRESENT: RRR, +S1, +S2 Pulses: PRESENT: normal carotid pulses Vascular exam: PRESENT: normal capillary refill GI/Abdominal exam: PRESENT: normal bowel sounds, soft. ABSENT: distended, guarding, rebound, tenderness Extremities exam: ABSENT: clubbing, pedal edema Musculoskeletal exam: PRESENT: normal inspection. ABSENT: deformity Neurological exam: PRESENT: awake, oriented to person, other - Confabulates, and speech is often nonsensical. ABSENT: oriented to place, oriented to situation Skin exam: PRESENT: dry, warm Results Laboratory Results: 12/09/20 06:18 01/21/20 06:18 01/20/20 01/20/20 01/20/20 13:00 13:00 14:23 WBC RBC Hgb Hct MCV MCH MCHC RDW Plt Count 26 L* Seg Neutrophils % Retic Count (auto) 0.20 L Sodium Potassium Chloride Carbon Dioxide Anion Gap BUN Creatinine Est GFR ( Amer) Glucose Lactic Acid Calcium Magnesium Iron 129.6 TIBC 210 L % Saturation 62 Total Bilirubin AST Alkaline Phosphatase Total Protein Albumin Vitamin B12 593.0 Folate 2.93 Blood Type Antibody Screen 01/20/20 01/20/20 01/21/20 16:30 17:02 06:18 WBC 4.3 RBC 2.41 L Hgb 9.0 L D Hct 25.5 L MCV 106 H MCH 37.2 H MCHC 35.2 RDW 16.0 H Plt Count 18 L* Seg Neutrophils % 71.5 Retic Count (auto) Sodium Potassium Chloride Carbon Dioxide Anion Gap BUN Creatinine Est GFR ( Amer) Glucose Lactic Acid 2.1 Calcium Magnesium Iron TIBC % Saturation Total Bilirubin AST Alkaline Phosphatase Total Protein Albumin Vitamin B12 Folate Blood Type O POSITIVE Antibody Screen NEGATIVE 01/21/20 06:18 WBC RBC Hgb Hct MCV MCH MCHC RDW Plt Count Seg Neutrophils % Retic Count (auto) Sodium 131.7 L Potassium 3.4 L D Chloride 95 L Carbon Dioxide 31 H Anion Gap 6 BUN 66 H Creatinine 1.50 H Est GFR ( Amer) 57 L Glucose 90 Lactic Acid Calcium 6.6 L* Magnesium 2.3 D Iron TIBC % Saturation Total Bilirubin 0.8 AST 73 H Alkaline Phosphatase 88 Total Protein 4.7 L Albumin 2.5 L Vitamin B12 Folate Blood Type Antibody Screen 01/20/20 16:30 Blood Blood Culture (PCR) - Final Staphylococcus Species 01/20/20 13:00 Troponin I < 0.012 Impressions: Abdomen/Pelvis CT 01/20/20 00:00 IMPRESSION: Possible 15 mm liver cyst. Mild diverticulosis coli with no acute inflammation. Constipation. Chest CT 01/20/20 00:00 IMPRESSION: Pulmonary emphysema. No acute findings in the thorax. Lower Extremity CT 01/20/20 00:00 IMPRESSION: NO ACUTE OR SIGNIFICANT FINDINGS IN THE HIP OR PELVIS. Chest X-Ray 01/20/20 12:59 IMPRESSION: COPD. NO ACUTE RADIOGRAPHIC FINDING IN THE CHEST. Cervical Spine CT 01/20/20 13:04 IMPRESSION: CHRONIC DEGENERATIVE CHANGES. NO ACUTE FINDINGS. Head CT 01/20/20 13:04 IMPRESSION: Mild involutional changes with no acute intracranial imaging finding. EVIDENCE OF ACUTE STROKE: NO. Assessment and Plan - Diagnosis (1) Wernicke encephalopathy Is this a current diagnosis for this admission?: Yes (2) Severe protein-calorie malnutrition Is this a current diagnosis for this admission?: Yes (3) HERMELINDO (acute kidney injury) Is this a current diagnosis for this admission?: Yes (4) Closed head injury Qualifiers: Encounter type: initial encounter Qualified Code(s): S09.90XA - Unspecified injury of head, initial encounter Is this a current diagnosis for this admission?: Yes (5) Contusion of right ear Qualifiers: Encounter type: initial encounter Qualified Code(s): S00.431A - Contusion of right ear, initial encounter Is this a current diagnosis for this admission?: Yes (6) Dehydration Is this a current diagnosis for this admission?: Yes (7) Frequent falls Is this a current diagnosis for this admission?: Yes (8) Hypokalemia Is this a current diagnosis for this admission?: Yes (9) Hyponatremia Is this a current diagnosis for this admission?: Yes (10) Hypothermia Qualifiers: Encounter type: initial encounter Qualified Code(s): T68.XXXA - Hypothermia, initial encounter Is this a current diagnosis for this admission?: Yes (11) Thrombocytopenia Is this a current diagnosis for this admission?: Yes - Plan Summary Summary: Extensive work-up has not revealed any source of infection. I suspect this patient had Warnicke's encephalopathy and that his hypothermia was due to thi amine deficiency. After he got some thiamine his body temperature improved. His creatinine is responding to IV fluids and his electrolytes are all improving. He had to get some calcium this morning due to hemodilution. It is possible that he went down at home due to an alcohol withdrawal seizure. His alcohol level is undetectable in the ER. He was more tremulous yesterday than he is today, so it is possible that he is coming out of withdrawal now. We continue to monitor him for withdrawal symptoms. We will continue to give him some IV fluids and replace his electrolytes, we will also continue with vitamin supplementation. Hopefully his cognition will begin to improve some with prolo nged thiamine administration. - Time Time Spent with patient: 25-34 minutes Anticipated Discharge Disposition: Unknown Anticipated Discharge Timeframe: Unknown
[2020-01-21] MEDS: CEFEPIME HCL 2 GM in DEXTROSE 5%-WATER 50 ML IV SCH (18:02)
[2020-01-21] MEDS: VANCOMYCIN HCL 750 MG in DEXTROSE 5%-WATER 250 ML IV SCH (23:17)
[2020-01-22] MEDS: CEFEPIME HCL 2 GM in DEXTROSE 5%-WATER 50 ML IV SCH ×2 (06:05→18:07)
[2020-01-22] MEDS: THIAMINE HCL 500 MG in NORMAL SALINE 250 ML IV SCH ×2 (06:05→13:58)
[2020-01-22 06:17] LABS: ABSOLUTE MONOCYTES (AUTO) 0.4 10^3/uL (0.1-1.4); ABSOLUTE NEUT (AUTO) 3.5 10^3/uL (1.7-8.2); BASOPHILS % (AUTO) 0.3 % (0-2); EOSINOPHILS % (AUTO) 0.7 % (0-6); HEMATOCRIT 23.4 % (37.9-51.0); LYMPHOCYTES % (AUTO) 20.4 % (13-45); MEAN CORPUSCULAR HEMOGLOBIN 36.8 pg (27.0-33.4); MEAN CORPUSCULAR HGB CONC 34.4 g/dL (32.0-36.0); MEAN CORPUSCULAR VOLUME 107 fl (80-97); MONOCYTES % (AUTO) 7.5 % (3-13); RED BLOOD COUNT 2.19 10^6/uL (4.35-5.55); RED CELL DISTRIBUTION WIDTH 15.7 % (11.5-14.0); SEGMENTED NEUTROPHILS % (AUTO) 71.1 % (42-78); TOTAL CELLS COUNTED % (AUTO) 100 %
[2020-01-22 06:35] LABS: ALBUMIN 2.3 g/dL (3.5-5.0); ALKALINE PHOSPHATASE 84 U/L (38-126); ASPARTATE AMINO TRANSFERASE 56 U/L (17-59); BILIRUBIN,DIRECT 0.3 mg/dL (0.0-0.4); BILIRUBIN,TOTAL 0.8 mg/dL (0.2-1.3); BLOOD UREA NITROGEN 52 mg/dL (7-20); CALCIUM 7.2 mg/dL (8.4-10.2); GLUCOSE 98 mg/dL (75-110); POTASSIUM 3.6 mmol/L (3.6-5.0); TOTAL PROTEIN 4.4 g/dL (6.3-8.2)
[2020-01-22 06:42] LABS: CARBON DIOXIDE 31 mmol/L (22-30); CHLORIDE 103 mmol/L (98-107)
[2020-01-22 06:45] LABS: ANION GAP 2 (5-19)
[2020-01-22 06:58] LABS: PLATELET COUNT 17 10^3/uL (150-450)
[2020-01-22] MEDS ORDERED: INFLUENZA QUAD (6MOS+) 2020-21 VAC 0.5 ML SYR IM ONE (08:00)
[2020-01-22 08:45] LABS: CALCIUM 6.6 mg/dL (8.4-10.2)
[2020-01-22] MEDS: POTASSI CL 40 MEQ/NS 1L 1,000 ML IV PRN (13:58)
--- NOTE | 2020-01-22 18:38 | PDOC PROGRESS REPORT ---
Subjective Date:: 01/22/20 Subjective:: No adverse events overnight. No new complaints. Vital signs been stable. He s till not eating very much. He asked his nurse today "how much will it cost to get me out of here?" Reason For Visit: HERMELINDO, AMI, SEPSIS Physical Exam Vital Signs: Temp Pulse Resp BP Pulse Ox 98.4 F 64 20 104/64 95 01/22/20 15:34 01/22/20 15:34 01/22/20 15:34 01/22/20 15:34 01/22/20 15:34 Intake & Output 01/21/20 01/22/20 01/23/20 06:59 06:59 06:59 Intake Total 5106.2 2370 1255 Output Total 2075 1175 Balance 3031.2 1195 1255 Weight 67.8 kg 61.5 kg 61.5 kg General appearance: PRESENT: no acute distress, cooperative, disheveled, thin Respiratory exam: PRESENT: clear to auscultation katrina, symmetrical, unlabored. ABSENT: accessory muscle use, chest wall tenderness, crackles, prolonged expiratory phas, rhonchi, tachypnea, wheezes Cardiovascular exam: PRESENT: RRR, +S1, +S2 Pulses: PRESENT: normal carotid pulses Vascular exam: PRESENT: normal capillary refill GI/Abdominal exam: PRESENT: normal bowel sounds, soft. ABSENT: distended, guarding, rebound, tenderness Extremities exam: ABSENT: clubbing, pedal edema Musculoskeletal exam: PRESENT: normal inspection. ABSENT: deformity Neurological exam: PRESENT: awake, oriented to person, oriented to place, other - Confabulates, and speech is often nonsensical. ABSENT: oriented to situation Skin exam: PRESENT: dry, warm Results Laboratory Results: 01/22/20 05:18 01/22/20 05:18 01/21/20 01/22/20 01/22/20 06:18 05:18 05:18 WBC 5.0 RBC 2.19 L Hgb 8.0 L Hct 23.4 L MCV 107 H MCH 36.8 H MCHC 34.4 RDW 15.7 H Plt Count 17 L* Seg Neutrophils % 71.1 Sodium 136.4 L Potassium 3.6 Chloride 103 Carbon Dioxide 31 H Anion Gap 2 L BUN 52 H Creatinine 0.93 Est GFR ( Amer) > 60 Glucose 98 Calcium 6.6 L* 7.2 L Magnesium 1.9 Total Bilirubin 0.8 AST 56 Alkaline Phosphatase 84 Total Protein 4.4 L Albumin 2.3 L 01/20/20 16:30 Blood Blood Culture (PCR) - Final Staphylococcus Species 01/20/20 14:45 Catheterized Urine Urine Culture - Final NO GROWTH 2 DAYS 01/20/20 13:00 Troponin I < 0.012 Impressions: Abdomen/Pelvis CT 01/20/20 00:00 IMPRESSION: Possible 15 mm liver cyst. Mild diverticulosis coli with no acute inflammation. Constipation. Chest CT 01/20/20 00:00 IMPRESSION: Pulmonary emphysema. No acute findings in the thorax. Lower Extremity CT 01/20/20 00:00 IMPRESSION: NO ACUTE OR SIGNIFICANT FINDINGS IN THE HIP OR PELVIS. Chest X-Ray 01/20/20 12:59 IMPRESSION: COPD. NO ACUTE RADIOGRAPHIC FINDING IN THE CHEST. Cervical Spine CT 01/20/20 13:04 IMPRESSION: CHRONIC DEGENERATIVE CHANGES. NO ACUTE FINDINGS. Head CT 01/20/20 13:04 IMPRESSION: Mild involutional changes with no acute intracranial imaging finding. EVIDENCE OF ACUTE STROKE: NO. Assessment and Plan - Diagnosis (1) Wernicke encephalopathy Is this a current diagnosis for this admission?: Yes (2) Severe protein-calorie malnutrition Is this a current diagnosis for this admission?: Yes (3) HERMELINDO (acute kidney injury) Is this a current diagnosis for this admission?: Yes (4) Closed head injury Qualifiers: Encounter type: initial encounter Qualified Code(s): S09.90XA - Unspecified injury of head, initial encounter Is this a current diagnosis for this admission?: Yes (5) Contusion of right ear Qualifiers: Encounter type: initial encounter Qualified Code(s): S00.431A - Contusion of right ear, initial encounter Is this a current diagnosis for this admission?: Yes (6) Dehydration Is this a current diagnosis for this admission?: Yes (7) Frequent falls Is this a current diagnosis for this admission?: Yes (8) Hypokalemia Is this a current diagnosis for this admission?: Yes (9) Hyponatremia Is this a current diagnosis for this admission?: Yes (10) Hypothermia Qualifiers: Encounter type: initial encounter Qualified Code(s): T68.XXXA - Hypothermia, initial encounter Is this a current diagnosis for this admission?: Yes (11) Thrombocytopenia Is this a current diagnosis for this admission?: Yes - Plan Summary Summary: Extensive work-up has not revealed any source of infection. I suspect this patient has Warnicke's encephalopathy and that his hypothermia was due to thiamine deficiency. After he got some thiamine his body temperature improved. His creatinine has responded to IV fluids and his electrolytes are all improving. His calcium corrects to normal due to his low albumin. It is possible that he went down at home due to an alcohol withdrawal seizure. His alcohol level is undetectable in the ER. He has not displayed any signs of withdrawal. We will continue to give him some IV fluids and replace his electrolytes as needed, we will also continue with vitamin supplementation. Hopefully his cognition will begin to improve some with prolonged thiamine administration. - Time Time Spent with patient: 15-24 minutes Anticipated Discharge Disposition: Unknown Anticipated Discharge Timeframe: Unknown
[2020-01-22] MEDS: VANCOMYCIN HCL 750 MG in DEXTROSE 5%-WATER 250 ML IV SCH (21:57)
[2020-01-23 01:33] LABS: C DIFFICILE GDH NEGATIVE (NEGATIVE)
[2020-01-23] MEDS: CEFEPIME HCL 2 GM in DEXTROSE 5%-WATER 50 ML IV SCH ×2 (05:37→17:52)
[2020-01-23] MEDS: POTASSI CL 40 MEQ/NS 1L 1,000 ML IV PRN ×2 (05:38→17:54)
[2020-01-23] MEDS ORDERED: LORAZEPAM INJ 2 MG/1 ML VIAL ONE (06:41)
[2020-01-23] MEDS ORDERED: LORAZEPAM INJ 2 MG/1 ML VIAL IV ONE ×2 (07:00→10:15)
[2020-01-23 07:03] LABS: HEMATOCRIT 23.6 % (37.9-51.0); HEMOGLOBIN 8.2 g/dL (13.5-17.0); MEAN CORPUSCULAR HEMOGLOBIN 37.5 pg (27.0-33.4); MEAN CORPUSCULAR HGB CONC 34.8 g/dL (32.0-36.0); MEAN CORPUSCULAR VOLUME 108 fl (80-97); RED BLOOD COUNT 2.19 10^6/uL (4.35-5.55); RED CELL DISTRIBUTION WIDTH 16.1 % (11.5-14.0); WHITE BLOOD COUNT 6.4 10^3/uL (4.0-10.5)
[2020-01-23 07:24] LABS: ALBUMIN 2.4 g/dL (3.5-5.0); ALKALINE PHOSPHATASE 90 U/L (38-126); ASPARTATE AMINO TRANSFERASE 59 U/L (17-59); BILIRUBIN,DIRECT 0.2 mg/dL (0.0-0.4); BILIRUBIN,TOTAL 0.7 mg/dL (0.2-1.3); BLOOD UREA NITROGEN 32 mg/dL (7-20); CALCIUM 7.9 mg/dL (8.4-10.2); GLUCOSE 98 mg/dL (75-110); POTASSIUM 3.8 mmol/L (3.6-5.0); TOTAL PROTEIN 4.7 g/dL (6.3-8.2)
[2020-01-23 07:30] LABS: CARBON DIOXIDE 33 mmol/L (22-30); CHLORIDE 106 mmol/L (98-107)
[2020-01-23 07:31] LABS: ANION GAP 1 (5-19)
[2020-01-23 08:00] LABS: ABSOLUTE LYMPHOCYTES# (MANUAL) 1.2 10^3/uL (0.5-4.7); ABSOLUTE MONOCYTES # (MANUAL) 0.3 10^3/uL (0.1-1.4); BAND NEUTROPHILS % (MANUAL) 2 % (3-5); BASOPHILS % (MANUAL) 0 % (0-2); EOSINOPHILS % (MANUAL) 2 % (0-6); LYMPHOCYTES % (MANUAL) 19 % (13-45); MONOCYTES % (MANUAL) 5 % (3-13); SEGMENTED NEUTROPHILS % (MAN) 72 % (42-78); TOTAL CELLS COUNTED 100
[2020-01-23 08:02] LABS: ANISOCYTOSIS 1+; OVALOCYTES SLIGHT; PLATELET COMMENT DECREASED; POIKILOCYTOSIS SLIGHT
[2020-01-23 08:09] LABS: PLATELET COUNT 25 10^3/uL (150-450)
[2020-01-23] MEDS: NICOTINE 14 MG/24 HR PATCH.TD24 TD SCH (09:58)
[2020-01-23] MEDS: VANCOMYCIN HCL 1,000 MG in DEXTROSE 5%-WATER 250 ML IV SCH ×2 (13:53→21:28)
--- NOTE | 2020-01-23 17:24 | PDOC PROGRESS REPORT ---
Subjective Date:: 01/23/20 Subjective:: He started displaying some true signs of alcohol withdrawal last night. No seiz ures. Has responded well to as needed doses of Ativan. Reason For Visit: HERMELINDO, AMI, SEPSIS Physical Exam Vital Signs: Temp Pulse Resp BP Pulse Ox 97.8 F 147 H 18 146/82 H 94 01/23/20 16:06 01/23/20 16:06 01/23/20 16:06 01/23/20 16:06 01/23/20 16:06 Intake & Output 01/22/20 01/23/20 01/24/20 06:59 06:59 06:59 Intake Total 2370 3405 356 Output Total 1175 1600 Balance 1195 1805 356 Weight 61.5 kg 72.6 kg 72.6 kg General appearance: PRESENT: Mild distress, cooperative, thin Respiratory exam: PRESENT: clear to auscultation katrina, symmetrical, unlabored. ABSENT: accessory muscle use, chest wall tenderness, crackles, prolonged expiratory phas, rhonchi, tachypnea, wheezes Cardiovascular exam: PRESENT: RRR, +S1, +S2 Pulses: PRESENT: normal carotid pulses Vascular exam: PRESENT: normal capillary refill GI/Abdominal exam: PRESENT: normal bowel sounds, soft. ABSENT: distended, guarding, rebound, tenderness Extremities exam: ABSENT: clubbing, pedal edema Musculoskeletal exam: PRESENT: normal inspection. ABSENT: deformity Neurological exam: PRESENT: Altered Skin exam: PRESENT: dry, warm Results Laboratory Results: 01/23/20 06:06 01/23/20 06:06 01/22/20 01/23/20 01/23/20 20:08 06:06 06:06 WBC 6.4 RBC 2.19 L Hgb 8.2 L Hct 23.6 L MCV 108 H MCH 37.5 H MCHC 34.8 RDW 16.1 H Plt Count 25 L* Seg Neutrophils % Not Reportable Sodium 140.2 Potassium 3.8 Chloride 106 Carbon Dioxide 33 H Anion Gap 1 L BUN 32 H Creatinine 0.75 Est GFR ( Amer) > 60 Glucose 98 Calcium 7.9 L Magnesium 1.4 L Total Bilirubin 0.7 AST 59 Alkaline Phosphatase 90 Total Protein 4.7 L Albumin 2.4 L Stool for White Cells NO WBCs SEEN 01/20/20 16:30 Blood Blood Culture (PCR) - Final Staphylococcus Species 01/20/20 16:30 Blood Blood Culture - Final Staphylococcus Epidermidis 01/20/20 13:00 Troponin I < 0.012 Impressions: Abdomen/Pelvis CT 01/20/20 00:00 IMPRESSION: Possible 15 mm liver cyst. Mild diverticulosis coli with no acute inflammation. Constipation. Chest CT 01/20/20 00:00 IMPRESSION: Pulmonary emphysema. No acute findings in the thorax. Lower Extremity CT 01/20/20 00:00 IMPRESSION: NO ACUTE OR SIGNIFICANT FINDINGS IN THE HIP OR PELVIS. Chest X-Ray 01/20/20 12:59 IMPRESSION: COPD. NO ACUTE RADIOGRAPHIC FINDING IN THE CHEST. Cervical Spine CT 01/20/20 13:04 IMPRESSION: CHRONIC DEGENERATIVE CHANGES. NO ACUTE FINDINGS. Head CT 01/20/20 13:04 IMPRESSION: Mild involutional changes with no acute intracranial imaging finding. EVIDENCE OF ACUTE STROKE: NO. Assessment and Plan - Diagnosis (1) Alcohol withdrawal delirium, acute, hyperactive Is this a current diagnosis for this admission?: Yes (2) Wernicke encephalopathy Is this a current diagnosis for this admission?: Yes (3) Severe protein-calorie malnutrition Is this a current diagnosis for this admission?: Yes (4) HERMELINDO (acute kidney injury) Is this a current diagnosis for this admission?: Yes (5) Closed head injury Qualifiers: Encounter type: initial encounter Qualified Code(s): S09.90XA - Unspecified injury of head, initial encounter Is this a current diagnosis for this admission?: Yes (6) Contusion of right ear Qualifiers: Encounter type: initial encounter Qualified Code(s): S00.431A - Contusion of right ear, initial encounter Is this a current diagnosis for this admission?: Yes (7) Dehydration Is this a current diagnosis for this admission?: Yes (8) Frequent falls Is this a current diagnosis for this admission?: Yes (9) Hypokalemia Is this a current diagnosis for this admission?: Yes (10) Hyponatremia Is this a current diagnosis for this admission?: Yes (11) Hypothermia Qualifiers: Encounter type: initial encounter Qualified Code(s): T68.XXXA - Hypothermia, initial encounter Is this a current diagnosis for this admission?: Yes (12) Thrombocytopenia Is this a current diagnosis for this admission?: Yes - Plan Summary Summary: Extensive work-up has not revealed any source of infection. I suspect this patient has Wernicke's encephalopathy and that his hypothermia was due to thiamine deficiency. After he got some thiamine his body temperature improved. His creatinine has responded to IV fluids and his electrolytes are all improving. His calcium corrects to normal due to his low albumin. Have started as needed Ativan for symptoms from alcohol withdrawal. We will continue to give him some IV fluids and replace his electrolytes as needed, we will also continue with vitamin supplementation. - Time Time Spent with patient: 25-34 minutes Anticipated Discharge Disposition: Unknown Anticipated Discharge Timeframe: Unknown
[2020-01-23] MEDS ORDERED: MAGNESIUM SULFATE/D5W 1 GM/100 ML RTUPB IV ONE (18:30)
[2020-01-23] MEDS: LORAZEPAM INJ 2 MG/1 ML VIAL IV PRN ×2 (20:14→22:23)
[2020-01-23] MEDS ORDERED: NORMAL SALINE 1000 ML 1,000 ML with POTASSIUM CHLORIDE 20 MEQ, MAGNESIUM SULFATE 8 MEQ,... IV SCH ×5 (22:00)
[2020-01-24] MEDS: LORAZEPAM INJ 2 MG/1 ML VIAL IV PRN ×5 (00:30→19:13)
[2020-01-24] MEDS: POTASSI CL 40 MEQ/NS 1L 1,000 ML IV PRN ×2 (04:29→15:44)
[2020-01-24] MEDS: CEFEPIME HCL 2 GM in DEXTROSE 5%-WATER 50 ML IV SCH ×2 (05:11→17:31)
[2020-01-24 06:36] LABS: HEMATOCRIT 24.4 % (37.9-51.0); HEMOGLOBIN 8.5 g/dL (13.5-17.0); MEAN CORPUSCULAR HEMOGLOBIN 37.5 pg (27.0-33.4); MEAN CORPUSCULAR HGB CONC 34.9 g/dL (32.0-36.0); MEAN CORPUSCULAR VOLUME 107 fl (80-97); RED BLOOD COUNT 2.27 10^6/uL (4.35-5.55); RED CELL DISTRIBUTION WIDTH 15.7 % (11.5-14.0); WHITE BLOOD COUNT 8.5 10^3/uL (4.0-10.5)
[2020-01-24 06:53] LABS: ALBUMIN 2.3 g/dL (3.5-5.0); ALKALINE PHOSPHATASE 86 U/L (38-126); ASPARTATE AMINO TRANSFERASE 61 U/L (17-59); BILIRUBIN,DIRECT 0.3 mg/dL (0.0-0.4); BILIRUBIN,TOTAL 0.7 mg/dL (0.2-1.3); BLOOD UREA NITROGEN 20 mg/dL (7-20); CALCIUM 7.8 mg/dL (8.4-10.2); CARBON DIOXIDE 27 mmol/L (22-30); GLUCOSE 94 mg/dL (75-110); POTASSIUM 4.6 mmol/L (3.6-5.0); TOTAL PROTEIN 4.6 g/dL (6.3-8.2)
[2020-01-24 06:58] LABS: CHLORIDE 110 mmol/L (98-107)
[2020-01-24 07:01] LABS: ANION GAP 2 (5-19); PLATELET COUNT 39 10^3/uL (150-450)
[2020-01-24 07:03] LABS: ABSOLUTE LYMPHOCYTES# (MANUAL) 2.1 10^3/uL (0.5-4.7); ABSOLUTE MONOCYTES # (MANUAL) 1.1 10^3/uL (0.1-1.4); BASOPHILS % (MANUAL) 0 % (0-2); EOSINOPHILS % (MANUAL) 0 % (0-6); LYMPHOCYTES % (MANUAL) 25 % (13-45); MONOCYTES % (MANUAL) 13 % (3-13); SEGMENTED NEUTROPHILS % (MAN) 62 % (42-78); TOTAL CELLS COUNTED 100
[2020-01-24 07:04] LABS: ANISOCYTOSIS 1+; PLATELET COMMENT DECREASED; POLYCHROMASIA 1+
[2020-01-24] MEDS: NICOTINE 14 MG/24 HR PATCH.TD24 TD SCH (10:14)
[2020-01-24] MEDS: VANCOMYCIN HCL 1,000 MG in DEXTROSE 5%-WATER 250 ML IV SCH ×2 (10:15→21:43)
--- NOTE | 2020-01-24 16:23 | PDOC PROGRESS REPORT ---
Subjective Date:: 01/24/20 Subjective:: No adverse events overnight. Patient remains in mild alcohol withdrawal. Hemod ynamically stable. No seizures. Reason For Visit: HERMELINDO, AMI, SEPSIS Physical Exam Vital Signs: Temp Pulse Resp BP Pulse Ox 98.4 F 85 19 158/77 H 100 01/24/20 15:14 01/24/20 15:14 01/24/20 15:14 01/24/20 15:14 01/24/20 15:14 Intake & Output 01/23/20 01/24/20 01/25/20 06:59 06:59 06:59 Intake Total 3405 3979 1250 Output Total 1600 1725 Balance 1805 2254 1250 Weight 72.6 kg 75.7 kg General appearance: PRESENT: Mild distress, cooperative, thin Respiratory exam: PRESENT: clear to auscultation katrina, symmetrical, unlabored. ABSENT: accessory muscle use, chest wall tenderness, crackles, prolonged expiratory phas, rhonchi, tachypnea, wheezes Cardiovascular exam: PRESENT: RRR, +S1, +S2 Pulses: PRESENT: normal carotid pulses Vascular exam: PRESENT: normal capillary refill GI/Abdominal exam: PRESENT: normal bowel sounds, soft. ABSENT: distended, guarding, rebound, tenderness Extremities exam: ABSENT: clubbing, pedal edema Musculoskeletal exam: PRESENT: normal inspection. ABSENT: deformity Neurological exam: PRESENT: Altered Skin exam: PRESENT: dry, warm Results Laboratory Results: 01/24/20 06:00 01/24/20 06:00 01/24/20 01/24/20 06:00 06:00 WBC 8.5 RBC 2.27 L Hgb 8.5 L Hct 24.4 L MCV 107 H MCH 37.5 H MCHC 34.9 RDW 15.7 H Plt Count 39 L Seg Neutrophils % Not Reportable Sodium 139.3 Potassium 4.6 Chloride 110 H Carbon Dioxide 27 Anion Gap 2 L BUN 20 Creatinine 0.53 Est GFR ( Amer) > 60 Glucose 94 Calcium 7.8 L Total Bilirubin 0.7 AST 61 H Alkaline Phosphatase 86 Total Protein 4.6 L Albumin 2.3 L 01/20/20 13:00 Troponin I < 0.012 Impressions: Abdomen/Pelvis CT 01/20/20 00:00 IMPRESSION: Possible 15 mm liver cyst. Mild diverticulosis coli with no acute inflammation. Constipation. Chest CT 01/20/20 00:00 IMPRESSION: Pulmonary emphysema. No acute findings in the thorax. Lower Extremity CT 01/20/20 00:00 IMPRESSION: NO ACUTE OR SIGNIFICANT FINDINGS IN THE HIP OR PELVIS. Chest X-Ray 01/20/20 12:59 IMPRESSION: COPD. NO ACUTE RADIOGRAPHIC FINDING IN THE CHEST. Cervical Spine CT 01/20/20 13:04 IMPRESSION: CHRONIC DEGENERATIVE CHANGES. NO ACUTE FINDINGS. Head CT 01/20/20 13:04 IMPRESSION: Mild involutional changes with no acute intracranial imaging finding. EVIDENCE OF ACUTE STROKE: NO. Assessment and Plan - Diagnosis (1) Alcohol withdrawal delirium, acute, hyperactive Is this a current diagnosis for this admission?: Yes (2) Wernicke encephalopathy Is this a current diagnosis for this admission?: Yes (3) Severe protein-calorie malnutrition Is this a current diagnosis for this admission?: Yes (4) HERMELINDO (acute kidney injury) Is this a current diagnosis for this admission?: Yes (5) Closed head injury Qualifiers: Encounter type: initial encounter Qualified Code(s): S09.90XA - Unspecified injury of head, initial encounter Is this a current diagnosis for this admission?: Yes (6) Contusion of right ear Qualifiers: Encounter type: initial encounter Qualified Code(s): S00.431A - Contusion of right ear, initial encounter Is this a current diagnosis for this admission?: Yes (7) Dehydration Is this a current diagnosis for this admission?: Yes (8) Frequent falls Is this a current diagnosis for this admission?: Yes (9) Hypokalemia Is this a current diagnosis for this admission?: Yes (10) Hyponatremia Is this a current diagnosis for this admission?: Yes (11) Hypothermia Qualifiers: Encounter type: initial encounter Qualified Code(s): T68.XXXA - Hypothermia , initial encounter Is this a current diagnosis for this admission?: Yes (12) Thrombocytopenia Is this a current diagnosis for this admission?: Yes - Plan Summary Summary: Extensive work-up has not revealed any source of infection. I suspect this patient has Wernicke's encephalopathy and that his hypothermia was due to thiamine deficiency. After he got some thiamine his body temperature improved. His creatinine has responded to IV fluids and his electrolytes are all improving. His calcium corrects to normal due to his low albumin. Have started as needed Ativan for symptoms from alcohol withdrawal. We will continue to give him some IV fluids and replace his electrolytes as needed, we will also continue with vitamin supplementation. When his withdrawal resolves, we will get a swallow evaluation and hope to get a better determination of his mental status. - Time Time Spent with patient: 15-24 minutes Anticipated Discharge Disposition: Unknown Anticipated Discharge Timeframe: Unknown
[2020-01-24] MEDS: NORMAL SALINE 1000 ML 1,000 ML IV PRN (19:30)
[2020-01-24] MEDS ORDERED: THIAMINE HCL 100 MG in NORMAL SALINE 50 ML IV ONE (20:00)
[2020-01-24 20:34] LABS: POTASSIUM 5.3 mmol/L (3.6-5.0)
[2020-01-24 20:39] LABS: VANCOMYCIN,TROUGH 15.4 ug/mL (5.0-20.0)
[2020-01-24] MEDS ORDERED: MAGNESIUM SULFATE/D5W 1 GM/100 ML RTUPB IV ONE ×2 (20:51→21:15)
[2020-01-25] MEDS: NORMAL SALINE 1000 ML 1,000 ML IV PRN ×2 (05:30→17:56)
[2020-01-25] MEDS: CEFEPIME HCL 2 GM in DEXTROSE 5%-WATER 50 ML IV SCH ×2 (05:43→17:26)
[2020-01-25 05:45] LABS: ABSOLUTE BASOPHILS # (AUTO) 0.1 10^3/uL (0.0-0.2); ABSOLUTE EOSINOPHILS # (AUTO) 0.1 10^3/uL (0.0-0.6); ABSOLUTE LYMPHOCYTES (AUTO) 1.6 10^3/uL (0.5-4.7); ABSOLUTE MONOCYTES (AUTO) 1.6 10^3/uL (0.1-1.4); BASOPHILS % (AUTO) 0.8 % (0-2); EOSINOPHILS % (AUTO) 0.8 % (0-6); HEMATOCRIT 24.9 % (37.9-51.0); HEMOGLOBIN 8.6 g/dL (13.5-17.0); LYMPHOCYTES % (AUTO) 17.4 % (13-45); MEAN CORPUSCULAR HEMOGLOBIN 37.5 pg (27.0-33.4); MEAN CORPUSCULAR HGB CONC 34.7 g/dL (32.0-36.0); MEAN CORPUSCULAR VOLUME 108 fl (80-97); MONOCYTES % (AUTO) 16.9 % (3-13); RED CELL DISTRIBUTION WIDTH 16.3 % (11.5-14.0); SEGMENTED NEUTROPHILS % (AUTO) 64.1 % (42-78); TOTAL CELLS COUNTED % (AUTO) 100 %; WHITE BLOOD COUNT 9.3 10^3/uL (4.0-10.5)
[2020-01-25] MEDS: LORAZEPAM INJ 2 MG/1 ML VIAL IV PRN ×4 (06:06→20:03)
[2020-01-25 06:13] LABS: ALBUMIN 2.2 g/dL (3.5-5.0); ALKALINE PHOSPHATASE 92 U/L (38-126); ANION GAP 9 (5-19); ASPARTATE AMINO TRANSFERASE 54 U/L (17-59); BILIRUBIN,DIRECT 0.3 mg/dL (0.0-0.4); BILIRUBIN,TOTAL 0.8 mg/dL (0.2-1.3); BLOOD UREA NITROGEN 14 mg/dL (7-20); CALCIUM 7.7 mg/dL (8.4-10.2); CARBON DIOXIDE 21 mmol/L (22-30); CHLORIDE 110 mmol/L (98-107); GLUCOSE 80 mg/dL (75-110); POTASSIUM 4.4 mmol/L (3.6-5.0); TOTAL PROTEIN 4.7 g/dL (6.3-8.2)
[2020-01-25 06:41] LABS: PLATELET COUNT 56 10^3/uL (150-450)
[2020-01-25] MEDS: NICOTINE 14 MG/24 HR PATCH.TD24 TD SCH (09:28)
[2020-01-25] MEDS: VANCOMYCIN HCL 1,000 MG in DEXTROSE 5%-WATER 250 ML IV SCH ×2 (09:28→21:50)
[2020-01-25] MEDS: THIAMINE HCL 100 MG in NORMAL SALINE 50 ML IV SCH (10:46)
--- NOTE | 2020-01-25 16:30 | PDOC PROGRESS REPORT ---
Subjective Date:: 01/25/20 Subjective:: No adverse events overnight. Patient remains in mild alcohol withdrawal. Hemod ynamically stable. No seizures. More awake today, opening his eyes for the first time in 2 days. Reason For Visit: HERMELINDO, AMI, SEPSIS Physical Exam Vital Signs: Temp Pulse Resp BP Pulse Ox 98.3 F 88 20 135/71 H 94 01/25/20 12:00 01/25/20 14:00 01/25/20 12:00 01/25/20 12:00 01/25/20 08:00 Intake & Output 01/24/20 01/25/20 01/26/20 06:59 06:59 06:59 Intake Total 3979 3027 321 Output Total 1725 1600 2 Balance 2254 1427 319 Weight 75.7 kg 77.2 kg 76.5 kg General appearance: PRESENT: Mild distress, cooperative, thin Respiratory exam: PRESENT: clear to auscultation katrina, symmetrical, unlabored. ABSENT: accessory muscle use, chest wall tenderness, crackles, prolonged expiratory phas, rhonchi, tachypnea, wheezes Cardiovascular exam: PRESENT: RRR, +S1, +S2 Pulses: PRESENT: normal carotid pulses Vascular exam: PRESENT: normal capillary refill GI/Abdominal exam: PRESENT: normal bowel sounds, soft. ABSENT: distended, guarding, rebound, tenderness Extremities exam: ABSENT: clubbing, pedal edema Musculoskeletal exam: PRESENT: normal inspection. ABSENT: deformity Neurological exam: PRESENT: Altered Skin exam: PRESENT: dry, warm Results Laboratory Results: 01/25/20 04:45 01/25/20 04:45 01/24/20 01/25/20 01/25/20 19:55 04:45 04:45 WBC 9.3 RBC 2.30 L Hgb 8.6 L Hct 24.9 L MCV 108 H MCH 37.5 H MCHC 34.7 RDW 16.3 H Plt Count 56 L Seg Neutrophils % 64.1 Sodium 139.9 Potassium 5.3 H 4.4 Chloride 110 H Carbon Dioxide 21 L Anion Gap 9 BUN 14 Creatinine 0.58 Est GFR ( Amer) > 60 Glucose 80 Calcium 7.7 L Magnesium 1.4 L 1.6 Total Bilirubin 0.8 AST 54 Alkaline Phosphatase 92 Total Protein 4.7 L Albumin 2.2 L 01/20/20 13:00 Troponin I < 0.012 Impressions: Abdomen/Pelvis CT 01/20/20 00:00 IMPRESSION: Possible 15 mm liver cyst. Mild diverticulosis coli with no acute inflammation. Constipation. Chest CT 01/20/20 00:00 IMPRESSION: Pulmonary emphysema. No acute findings in the thorax. Lower Extremity CT 01/20/20 00:00 IMPRESSION: NO ACUTE OR SIGNIFICANT FINDINGS IN THE HIP OR PELVIS. Chest X-Ray 01/20/20 12:59 IMPRESSION: COPD. NO ACUTE RADIOGRAPHIC FINDING IN THE CHEST. Cervical Spine CT 01/20/20 13:04 IMPRESSION: CHRONIC DEGENERATIVE CHANGES. NO ACUTE FINDINGS. Head CT 01/20/20 13:04 IMPRESSION: Mild involutional changes with no acute intracranial imaging finding. EVIDENCE OF ACUTE STROKE: NO. Assessment and Plan - Diagnosis (1) Alcohol withdrawal delirium, acute, hyperactive Is this a current diagnosis for this admission?: Yes (2) Wernicke encephalopathy Is this a current diagnosis for this admission?: Yes (3) Severe protein-calorie malnutrition Is this a current diagnosis for this admission?: Yes (4) HERMELINDO (acute kidney injury) Is this a current diagnosis for this admission?: Yes (5) Closed head injury Qualifiers: Encounter type: initial encounter Qualified Code(s): S09.90XA - Unspecified injury of head, initial encounter Is this a current diagnosis for this admission?: Yes (6) Contusion of right ear Qualifiers: Encounter type: initial encounter Qualified Code(s): S00.431A - Contusion of right ear, initial encounter Is this a current diagnosis for this admission?: Yes (7) Dehydration Is this a current diagnosis for this admission?: Yes (8) Frequent falls Is this a current diagnosis for this admission?: Yes (9) Hypokalemia Is this a current diagnosis for this admission?: Yes (10) Hyponatremia Is this a current diagnosis for this admission?: Yes (11) Hypothermia Qualifiers: Encounter type: initial encounter Qualified Code(s): T68.XXXA - Hypothermia, initial encounter Is this a current diagnosis for this admission?: Yes (12) Thrombocytopenia Is this a current diagnosis for this admission?: Yes - Plan Summary Summary: Extensive work-up has not revealed any source of infection. I suspect this patient has Wernicke's encephalopathy and that his hypothermia was due to thiamine deficiency. After he got some thiamine his body temperature improved. His creatinine has responded to IV fluids and his electrolytes are all improving. His calcium corrects to normal due to his low albumin. Have started as needed Ativan for symptoms from alcohol withdrawal. We will continue to give him some IV fluids and replace his electrolytes as needed, we will also continue with vitamin supplementation. When his withdrawal resolves, we will get a swallow evaluation and hope to get a better determination of his mental status. - Time Time Spent with patient: 15-24 minutes Anticipated Discharge Disposition: Unknown Anticipated Discharge Timeframe: Unknown
[2020-01-26] MEDS: NORMAL SALINE 1000 ML 1,000 ML IV PRN ×3 (03:56→22:36)
[2020-01-26 05:55] LABS: ABSOLUTE BASOPHILS # (AUTO) 0.1 10^3/uL (0.0-0.2); ABSOLUTE MONOCYTES (AUTO) 1.9 10^3/uL (0.1-1.4); ABSOLUTE NEUT (AUTO) 9.4 10^3/uL (1.7-8.2); BASOPHILS % (AUTO) 0.6 % (0-2); EOSINOPHILS % (AUTO) 0.2 % (0-6); HEMATOCRIT 24.1 % (37.9-51.0); HEMOGLOBIN 8.3 g/dL (13.5-17.0); LYMPHOCYTES % (AUTO) 8.3 % (13-45); MEAN CORPUSCULAR HEMOGLOBIN 36.8 pg (27.0-33.4); MEAN CORPUSCULAR HGB CONC 34.4 g/dL (32.0-36.0); MEAN CORPUSCULAR VOLUME 107 fl (80-97); MONOCYTES % (AUTO) 15.5 % (3-13); RED BLOOD COUNT 2.26 10^6/uL (4.35-5.55); RED CELL DISTRIBUTION WIDTH 16.1 % (11.5-14.0); SEGMENTED NEUTROPHILS % (AUTO) 75.4 % (42-78); TOTAL CELLS COUNTED % (AUTO) 100 %; WHITE BLOOD COUNT 12.4 10^3/uL (4.0-10.5)
[2020-01-26] MEDS: CEFEPIME HCL 2 GM in DEXTROSE 5%-WATER 50 ML IV SCH (06:04)
[2020-01-26 06:11] LABS: ALBUMIN 2.1 g/dL (3.5-5.0); ALKALINE PHOSPHATASE 95 U/L (38-126); ANION GAP 5 (5-19); ASPARTATE AMINO TRANSFERASE 53 U/L (17-59); BILIRUBIN,DIRECT 0.2 mg/dL (0.0-0.4); BILIRUBIN,TOTAL 0.7 mg/dL (0.2-1.3); BLOOD UREA NITROGEN 14 mg/dL (7-20); CALCIUM 7.7 mg/dL (8.4-10.2); CARBON DIOXIDE 23 mmol/L (22-30); CHLORIDE 110 mmol/L (98-107); GLUCOSE 88 mg/dL (75-110); POTASSIUM 3.9 mmol/L (3.6-5.0); TOTAL PROTEIN 4.5 g/dL (6.3-8.2)
[2020-01-26 06:44] LABS: PLATELET COUNT 86 10^3/uL (150-450)
[2020-01-26] MEDS: NICOTINE 14 MG/24 HR PATCH.TD24 TD SCH (09:37)
[2020-01-26] MEDS: THIAMINE HCL 100 MG in NORMAL SALINE 50 ML IV SCH (09:37)
[2020-01-26] MEDS: VANCOMYCIN HCL 1,000 MG in DEXTROSE 5%-WATER 250 ML IV SCH (10:44)
--- NOTE | 2020-01-26 16:22 | PDOC PROGRESS REPORT ---
Subjective Date:: 01/26/20 Subjective:: No adverse events overnight. Patient remains in mild alcohol withdrawal. Hemod ynamically stable. No seizures. He actually responded to me a little bit today, and followed my command to give a cough. I could not get him to repeat that, and his cough was actually fairly weak. Reason For Visit: HERMELINDO, AMI, SEPSIS Physical Exam Vital Signs: Temp Pulse Resp BP Pulse Ox 98.1 F 75 21 H 151/85 H 93 01/26/20 15:20 01/26/20 15:20 01/26/20 15:20 01/26/20 15:20 01/26/20 15:20 Intake & Output 01/25/20 01/26/20 01/27/20 06:59 06:59 06:59 Intake Total 3027 2591 851 Output Total 1600 852 Balance 1427 1739 851 Weight 77.2 kg 77.3 kg General appearance: PRESENT: Mild distress, cooperative, thin Respiratory exam: PRESENT: Rhonchi, symmetrical, unlabored. ABSENT: accessory muscle use, chest wall tenderness, crackles, prolonged expiratory phase, tachypnea, wheezes Cardiovascular exam: PRESENT: RRR, +S1, +S2 Pulses: PRESENT: normal carotid pulses Vascular exam: PRESENT: normal capillary refill GI/Abdominal exam: PRESENT: normal bowel sounds, soft. ABSENT: distended, guarding, rebound, tenderness Extremities exam: ABSENT: clubbing, pedal edema Musculoskeletal exam: PRESENT: normal inspection. ABSENT: deformity Neurological exam: PRESENT: Altered Skin exam: PRESENT: dry, warm Results Laboratory Results: 01/26/20 05:15 01/26/20 05:15 01/26/20 01/26/20 01/26/20 05:15 05:15 13:36 WBC 12.4 H RBC 2.26 L Hgb 8.3 L Hct 24.1 L MCV 107 H MCH 36.8 H MCHC 34.4 RDW 16.1 H Plt Count 86 L Seg Neutrophils % 75.4 Sodium 138.1 Potassium 3.9 Chloride 110 H Carbon Dioxide 23 Anion Gap 5 BUN 14 Creatinine 0.57 Est GFR ( Amer) > 60 Glucose 88 Calcium 7.7 L Total Bilirubin 0.7 AST 53 Alkaline Phosphatase 95 Ammonia < 8.7 L Total Protein 4.5 L Albumin 2.1 L 12/08/20 17:02 Blood Blood Culture - Final NO GROWTH IN 5 DAYS 01/20/20 13:00 Troponin I < 0.012 Impressions: Abdomen/Pelvis CT 01/20/20 00:00 IMPRESSION: Possible 15 mm liver cyst. Mild diverticulosis coli with no acute inflammation. Constipation. Chest CT 01/20/20 00:00 IMPRESSION: Pulmonary emphysema. No acute findings in the thorax. Lower Extremity CT 01/20/20 00:00 IMPRESSION: NO ACUTE OR SIGNIFICANT FINDINGS IN THE HIP OR PELVIS. Chest X-Ray 01/20/20 12:59 IMPRESSION: COPD. NO ACUTE RADIOGRAPHIC FINDING IN THE CHEST. Cervical Spine CT 01/20/20 13:04 IMPRESSION: CHRONIC DEGENERATIVE CHANGES. NO ACUTE FINDINGS. Head CT 01/20/20 13:04 IMPRESSION: Mild involutional changes with no acute intracranial imaging finding. EVIDENCE OF ACUTE STROKE: NO. Assessment and Plan - Diagnosis (1) Alcohol withdrawal delirium, acute, hyperactive Is this a current diagnosis for this admission?: Yes (2) Wernicke encephalopathy Is this a current diagnosis for this admission?: Yes (3) Severe protein-calorie malnutrition Is this a current diagnosis for this admission?: Yes (4) HERMELINDO (acute kidney injury) Is this a current diagnosis for this admission?: Yes (5) Closed head injury Qualifiers: Encounter type: initial encounter Qualified Code(s): S09.90XA - Unspecified injury of head, initial encounter Is this a current diagnosis for this admission?: Yes (6) Contusion of right ear Qualifiers: Encounter type: initial encounter Qualified Code(s): S00.431A - Contusion of right ear, initial encounter Is this a current diagnosis for this admission?: Yes (7) Dehydration Is this a current diagnosis for this admission?: Yes (8) Frequent falls Is this a current diagnosis for this admission?: Yes (9) Hypokalemia Is this a current diagnosis for this admission?: Yes (10) Hyponatremia Is this a current diagnosis for this admission?: Yes (11) Hypothermia Qualifiers: Encounter type: initial encounter Qualified Code(s): T68.XXXA - Hypothermia, initial encounter Is this a current diagnosis for this admission?: Yes (12) Thrombocytopenia Is this a current diagnosis for this admission?: Yes - Plan Summary Summary: He has a lot of rhonchi on exam today, and may have aspirated. Have stopped his current antibiotics and have switched him over to Zosyn. Chest x-ray is pending. Ammonia level was undetectable. I suspect this patient has Wernicke's encephalopathy and that his hypothermia was due to thiamine deficiency. After he got some thiamine his body temperature improved. His creatinine has responded to IV fluids and his electrolytes are all improving. His calcium corrects to normal due to his low albumin. Have started as needed Ativan for symptoms from alcohol withdrawal. We will continue to give him some IV fluids at more of a maintenance rate and replace his electrolytes as needed, we will also continue with vitamin supplementation. When his withdrawal resolves, we will get a swallow evaluation and hope to get a better determination of his mental status. - Time Time Spent with patient: 15-24 minutes Anticipated Discharge Disposition: Unknown Anticipated Discharge Timeframe: Unknown
[2020-01-26] MEDS: LORAZEPAM INJ 2 MG/1 ML VIAL IV PRN ×2 (18:07→22:35)
--- NOTE | 2020-01-26 19:23 | RADIOLOGY REPORT (SQ) ---
EXAM DESCRIPTION: CHEST SINGLE VIEW IMAGES COMPLETED DATE/TIME: 01/26/2020 3:06 pm REASON FOR STUDY: Cough, chest congestion COMPARISON: 01/20/2020 EXAM PARAMETERS: NUMBER OF VIEWS: One view. TECHNIQUE: Single frontal radiographic view of the chest acquired. RADIATION DOSE: NA LIMITATIONS: Motion artifact. FINDINGS: LUNGS AND PLEURA: Increase in right perihilar and medial right basilar opacities since maya or examination which may be due to infection. No pleural effusion. No definite pneumothorax. MEDIASTINUM AND HILAR STRUCTURES: No masses. Contour normal. HEART AND VASCULAR STRUCTURES: Heart normal in size. Normal vasculature. BONES: No acute findings. HARDWARE: None in the chest. OTHER: No other significant finding. IMPRESSION: New right lung opacities, most pronounced in the medial right lung base suspicious for i nfection. TECHNICAL DOCUMENTATION: JOB ID: [id number] 2010 [employer]- All Rights Reserved Reading location - IP/workstation name: [email or web address]
[2020-01-26] MEDS: PIPERACILLIN SODIUM/TAZOBACTAM 3.375 GM in NORMAL SALINE 100 ML IV SCH (21:50)
[2020-01-27] MEDS: PIPERACILLIN SODIUM/TAZOBACTAM 3.375 GM in NORMAL SALINE 100 ML IV SCH ×4 (03:00→21:24)
[2020-01-27] MEDS: LORAZEPAM INJ 2 MG/1 ML VIAL IV PRN ×6 (03:15→23:58)
[2020-01-27 06:01] LABS: ABSOLUTE BASOPHILS # (AUTO) 0.1 10^3/uL (0.0-0.2); ABSOLUTE LYMPHOCYTES (AUTO) 1.3 10^3/uL (0.5-4.7); ABSOLUTE MONOCYTES (AUTO) 1.7 10^3/uL (0.1-1.4); ABSOLUTE NEUT (AUTO) 10.4 10^3/uL (1.7-8.2); BASOPHILS % (AUTO) 0.6 % (0-2); EOSINOPHILS % (AUTO) 0.3 % (0-6); HEMATOCRIT 24.5 % (37.9-51.0); HEMOGLOBIN 8.3 g/dL (13.5-17.0); LYMPHOCYTES % (AUTO) 9.5 % (13-45); MEAN CORPUSCULAR HEMOGLOBIN 36.5 pg (27.0-33.4); MEAN CORPUSCULAR VOLUME 107 fl (80-97); MONOCYTES % (AUTO) 12.4 % (3-13); PLATELET COUNT 120 10^3/uL (150-450); RED BLOOD COUNT 2.28 10^6/uL (4.35-5.55); RED CELL DISTRIBUTION WIDTH 16.8 % (11.5-14.0); SEGMENTED NEUTROPHILS % (AUTO) 77.2 % (42-78); TOTAL CELLS COUNTED % (AUTO) 100 %; WHITE BLOOD COUNT 13.4 10^3/uL (4.0-10.5)
[2020-01-27 06:28] LABS: ALBUMIN 2.1 g/dL (3.5-5.0); ALKALINE PHOSPHATASE 93 U/L (38-126); ANION GAP 5 (5-19); ASPARTATE AMINO TRANSFERASE 41 U/L (17-59); BILIRUBIN,DIRECT 0.3 mg/dL (0.0-0.4); BILIRUBIN,TOTAL 0.7 mg/dL (0.2-1.3); BLOOD UREA NITROGEN 14 mg/dL (7-20); CALCIUM 7.7 mg/dL (8.4-10.2); CARBON DIOXIDE 24 mmol/L (22-30); CHLORIDE 110 mmol/L (98-107); GLUCOSE 91 mg/dL (75-110); POTASSIUM 3.8 mmol/L (3.6-5.0); TOTAL PROTEIN 4.4 g/dL (6.3-8.2)
[2020-01-27] MEDS: NICOTINE 14 MG/24 HR PATCH.TD24 TD SCH (09:54)
[2020-01-27] MEDS: THIAMINE HCL 100 MG in NORMAL SALINE 50 ML IV SCH (09:54)
--- NOTE | 2020-01-27 19:09 | PDOC PROGRESS REPORT ---
Subjective Date:: 01/27/20 Subjective:: No adverse events overnight. Patient remains in mild alcohol withdrawal. Hemod ynamically stable. No seizures. He responded again today to verbal command, and I asked him to cough, but he started to cough and then stopped. Reason For Visit: HERMELINDO, AMI, SEPSIS Physical Exam Vital Signs: Temp Pulse Resp BP Pulse Ox 98.0 F 90 20 136/73 H 90 L 01/27/20 16:00 01/27/20 16:00 01/27/20 16:00 01/27/20 16:00 01/27/20 16:00 Intake & Output 01/26/20 01/27/20 01/28/20 06:59 06:59 06:59 Intake Total 2591 1501 51 Output Total 852 1350 700 Balance 1739 151 -649 Weight 77.3 kg 78.6 kg 78.6 kg General appearance: PRESENT: Mild distress, cooperative, thin Respiratory exam: PRESENT: Rhonchi, symmetrical, unlabored. ABSENT: accessory muscle use, chest wall tenderness, crackles, prolonged expiratory phase, tachypnea, wheezes Cardiovascular exam: PRESENT: RRR, +S1, +S2 Pulses: PRESENT: normal carotid pulses Vascular exam: PRESENT: normal capillary refill GI/Abdominal exam: PRESENT: normal bowel sounds, soft. ABSENT: distended, guarding, rebound, tenderness Extremities exam: ABSENT: clubbing, pedal edema Musculoskeletal exam: PRESENT: normal inspection. ABSENT: deformity Neurological exam: PRESENT: Altered Skin exam: PRESENT: dry, warm Results Laboratory Results: 01/27/20 05:35 01/27/20 05:35 01/27/20 01/27/20 05:35 05:35 WBC 13.4 H RBC 2.28 L Hgb 8.3 L Hct 24.5 L MCV 107 H MCH 36.5 H MCHC 34.0 RDW 16.8 H Plt Count 120 L Seg Neutrophils % 77.2 Sodium 139.4 Potassium 3.8 Chloride 110 H Carbon Dioxide 24 Anion Gap 5 BUN 14 Creatinine 0.60 Est GFR ( Amer) > 60 Glucose 91 Calcium 7.7 L Total Bilirubin 0.7 AST 41 Alkaline Phosphatase 93 Total Protein 4.4 L Albumin 2.1 L 01/20/20 13:00 Troponin I < 0.012 Impressions: Abdomen/Pelvis CT 01/20/20 00:00 IMPRESSION: Possible 15 mm liver cyst. Mild diverticulosis coli with no acute inflammation. Constipation. Chest CT 01/20/20 00:00 IMPRESSION: Pulmonary emphysema. No acute findings in the thorax. Lower Extremity CT 01/20/20 00:00 IMPRESSION: NO ACUTE OR SIGNIFICANT FINDINGS IN THE HIP OR PELVIS. Cervical Spine CT 01/20/20 13:04 IMPRESSION: CHRONIC DEGENERATIVE CHANGES. NO ACUTE FINDINGS. Head CT 01/20/20 13:04 IMPRESSION: Mild involutional changes with no acute intracranial imaging findi ng. EVIDENCE OF ACUTE STROKE: NO. Chest X-Ray 01/26/20 00:00 IMPRESSION: New right lung opacities, most pronounced in the medial right lung base suspicious for infection. Assessment and Plan - Diagnosis (1) Alcohol withdrawal delirium, acute, hyperactive Is this a current diagnosis for this admission?: Yes (2) Wernicke encephalopathy Is this a current diagnosis for this admission?: Yes (3) Severe protein-calorie malnutrition Is this a current diagnosis for this admission?: Yes (4) HERMELINDO (acute kidney injury) Is this a current diagnosis for this admission?: Yes (5) Closed head injury Qualifiers: Encounter type: initial encounter Qualified Code(s): S09.90XA - Unspecified injury of head, initial encounter Is this a current diagnosis for this admission?: Yes (6) Contusion of right ear Qualifiers: Encounter type: initial encounter Qualified Code(s): S00.431A - Contusion of right ear, initial encounter Is this a current diagnosis for this admission?: Yes (7) Dehydration Is this a current diagnosis for this admission?: Yes (8) Frequent falls Is this a current diagnosis for this admission?: Yes (9) Hypokalemia Is this a current diagnosis for this admission?: Yes (10) Hyponatremia Is this a current diagnosis for this admission?: Yes (11) Hypothermia Qualifiers: Encounter type: initial encounter Qualified Code(s): T68.XXXA - Hypothermia, initial encounter Is this a current diagnosis for this admission?: Yes (12) Thrombocytopenia Is this a current diagnosis for this admission?: Yes (13) Aspiration pneumonia Qualifiers: Aspiration pneumonia type: due to gastric secretions Laterality: right Lung location: lower lobe of lung Qualified Code(s): J69.0 - Pneumonitis due to inhalation of food and vomit Is this a current diagnosis for this admission?: Yes - Plan Summary Summary: He continues on Zosyn for aspiration pneumonia, no hypoxemia. Ammonia level was undetectable. I suspect this patient has Wernicke's encephalopathy and that his hypothermia was due to thiamine deficiency. After he got some thiamine his body temperature improved. His creatinine has responded to IV fluids and his electrolytes are all improving. His calcium corrects to normal due to his low albumin. Continue as needed Ativan for symptoms from alcohol withdrawal. We will continue to give him some IV fluids at more of a maintenance rate and replace his electrolytes as needed, we will also continue with vitamin supplementation. When his withdrawal resolves, we will get a swallow evaluation and hope to get a better determination of his mental status. - Time Time Spent with patient: 15-24 minutes Anticipated Discharge Disposition: Unknown Anticipated Discharge Timeframe: Unknown
[2020-01-27] MEDS: NORMAL SALINE 1000 ML 1,000 ML IV PRN (21:24)
[2020-01-28] MEDS: PIPERACILLIN SODIUM/TAZOBACTAM 3.375 GM in NORMAL SALINE 100 ML IV SCH ×4 (02:15→20:16)
[2020-01-28] MEDS: LORAZEPAM INJ 2 MG/1 ML VIAL IV PRN ×6 (03:36→23:04)
[2020-01-28 06:39] LABS: ABSOLUTE BASOPHILS # (AUTO) 0.1 10^3/uL (0.0-0.2); ABSOLUTE EOSINOPHILS # (AUTO) 0.1 10^3/uL (0.0-0.6); ABSOLUTE LYMPHOCYTES (AUTO) 1.2 10^3/uL (0.5-4.7); ABSOLUTE MONOCYTES (AUTO) 1.4 10^3/uL (0.1-1.4); BASOPHILS % (AUTO) 0.8 % (0-2); EOSINOPHILS % (AUTO) 0.6 % (0-6); HEMATOCRIT 24.4 % (37.9-51.0); HEMOGLOBIN 8.4 g/dL (13.5-17.0); LYMPHOCYTES % (AUTO) 10.1 % (13-45); MEAN CORPUSCULAR HEMOGLOBIN 36.8 pg (27.0-33.4); MEAN CORPUSCULAR HGB CONC 34.3 g/dL (32.0-36.0); MEAN CORPUSCULAR VOLUME 107 fl (80-97); MONOCYTES % (AUTO) 11.6 % (3-13); PLATELET COUNT 167 10^3/uL (150-450); RED BLOOD COUNT 2.27 10^6/uL (4.35-5.55); RED CELL DISTRIBUTION WIDTH 16.6 % (11.5-14.0); SEGMENTED NEUTROPHILS % (AUTO) 76.9 % (42-78); TOTAL CELLS COUNTED % (AUTO) 100 %; WHITE BLOOD COUNT 11.7 10^3/uL (4.0-10.5)
[2020-01-28 07:00] LABS: ALBUMIN 2.1 g/dL (3.5-5.0); ALKALINE PHOSPHATASE 92 U/L (38-126); ANION GAP 9 (5-19); ASPARTATE AMINO TRANSFERASE 47 U/L (17-59); BILIRUBIN,DIRECT 0.2 mg/dL (0.0-0.4); BILIRUBIN,TOTAL 0.6 mg/dL (0.2-1.3); BLOOD UREA NITROGEN 14 mg/dL (7-20); CALCIUM 7.7 mg/dL (8.4-10.2); CARBON DIOXIDE 23 mmol/L (22-30); CHLORIDE 110 mmol/L (98-107); GLUCOSE 83 mg/dL (75-110); POTASSIUM 3.8 mmol/L (3.6-5.0); TOTAL PROTEIN 4.4 g/dL (6.3-8.2)
[2020-01-28] MEDS: NICOTINE 14 MG/24 HR PATCH.TD24 TD SCH (09:10)
[2020-01-28] MEDS: THIAMINE HCL 100 MG in NORMAL SALINE 50 ML IV SCH (10:20)
--- NOTE | 2020-01-28 12:09 | PDOC PROGRESS REPORT ---
Subjective Date:: 01/28/20 Subjective:: 64 year old male with PMH of hypertension, alcohol abuse, and chronic low back s /p lumbar fusion surgery and stimulator placement, who presented via EMS due to AMS. History obtained from EMS records, ED attending and family (, son and daughter) due to AMS. Mr. Crystal currently lives alone. He is from his , [place]. He has two adult children, Kirk and Madisyn, who check in on him regularly. All three note that he was seeing a back pain doctor in [place] (name unknown) for chronic LBP. He underwent a procedure in 08/[address] nerve stimulator in his lower back. The stimulator "sticks out" from his lower back and R hip and this actually caused him worse pain than prior to the procedure. Ever since August, he has had "excruciating," and uncontrolled pain as a result. He has gone back and forth to this doctor several times for pain medications, which he was not prescribed. He started "self-medicating" with alcohol, drinking over a gallon of liquor per week. His family note that he has had a physical and mental decline ever since, and that his personality has completely changed. He has become abusive, threatening and mean. He threatened the life of his , Pratibha, so she left their home and they are now . His children try to check in on him and bring him food regularly, but he does not let them inside his house. His children note that he has recently lost a tremendous amount of weight (unknown quantity). Mr. Crystal normally keeps in touch with his kids via text and phone calls, but had stopped responding to phone messages since 01/17. Therefore, his children went to check on him today, and found him at home, altered, confused and disheveled. His home was in disarray, there was feces "everywhere" and there was reportedly bright red blood all over his pillows and sheets. His children state that the patient has been telling them that he is vomiting and coughing up blood (for an unknown period of time). His notes that he has been incontinent of stool and urine for months, ever since he started drinking in excess, but this has been progressively worsening over the last few months. None of them have ever witnessed him to have a seizure and are not aware of him having any seizures. They all note that he falls very frequently and is very unsteady on his feet. They state that, ever since his nerve stimulator surgery in August, he has had "leg twitches" and that his legs give out when he tries to ambulate. Of note, his family found several containers of untouched food all around his home. It appears that he has had nothing to eat for at least several days. EMS reportedly found him incoherent, hypothermic and hypotensive. 01/21/20-No adverse events overnight. His mental status has improved a little bit, but he still confabulating quite a bit. His daughter was in the room with him and she expressed her concern that this has been developing for several weeks. Apparently he and his a few weeks ago, and he has been by himself most of the time since then. His daughter says that he has been drinking heavily for at least the past several months. She does not know how long the bottles have been accumulating, but when a friend went over to clean up his house recently, she found 21 1/2 gallon empty bottles of liquor. His left on December 25. He apparently has not been eating. His daughter has been bringing food to him periodically but none of it is getting eaten. His daughter says she last saw him on , and last spoke to him Sunday evening. He was found Sunday morning. 01/22/20-No adverse events overnight. No new complaints. Vital signs been stable. He still not eating very much. He asked his nurse today "how much will it cost to get me out of here?" 01/23/20-He started displaying some true signs of alcohol withdrawal last night. No seizures. Has responded well to as needed doses of Ativan. 01/24/20-=No adverse events overnight. Patient remains in mild alcohol withdrawal. Hemodynamically stable. No seizures. 01/25/20No adverse events overnight. Patient remains in mild alcohol withdrawal. Hemodynamically stable. No seizures. He actually responded to me a little bit today, and followed my command to give a cough. I could not get him to repeat that, and his cough was actually fairly weak. No adverse events overnight. Patient remains in mild alcohol withdrawal. Hemodynamically stable. No seizures. He responded again today to verbal command, and I asked him to cough, but he started to cough and then stopped. 01/27/20-No adverse events overnight. Patient remains in mild alcohol withdrawal. Hemodynamically stable. No seizures. He responded again today to verbal command, and I asked him to cough, but he started to cough and then stopped. 01/28/2020-patient is not communicative. Not following the commands. Patient's son is at bedside. He is requesting for speech evaluation. CODE STATUS is DNR/DNI. I discussed about comfort care measures only family is wants take it day by day. Reason For Visit: HERMELINDO, AMI, SEPSIS Physical Exam Vital Signs: Temp Pulse Resp BP Pulse Ox 97.4 F 80 20 127/76 H 97 01/28/20 11:20 01/28/20 11:20 01/28/20 11:20 01/28/20 11:20 01/28/20 11:20 Intake & Output 01/27/20 01/28/20 01/29/20 06:59 06:59 06:59 Intake Total 1501 1051 51 Output Total 1350 1000 Balance 151 51 51 Weight 78.6 kg 78 kg General appearance: PRESENT: other - In moderate distress, not communicative not following the commands Head exam: PRESENT: atraumatic Eye exam: PRESENT: PERRLA Mouth exam: PRESENT: moist, tongue midline Teeth exam: PRESENT: poor dentation Neck exam: ABSENT: carotid bruit, JVD, lymphadenopathy, thyromegaly Respiratory exam: PRESENT: decreased breath sounds, rhonchi, tachypnea Cardiovascular exam: PRESENT: RRR. ABSENT: diastolic murmur, rubs, systolic murmur GI/Abdominal exam: PRESENT: normal bowel sounds, soft. ABSENT: distended, guarding, mass, organolmegaly, rebound, tenderness Rectal exam: PRESENT: deferred Extremities exam: PRESENT: full ROM. ABSENT: calf tenderness, clubbing, pedal edema Neurological exam: PRESENT: altered Results Laboratory Results: 01/28/20 05:40 01/28/20 05:40 01/28/20 01/28/20 05:40 05:40 WBC 11.7 H RBC 2.27 L Hgb 8.4 L Hct 24.4 L MCV 107 H MCH 36.8 H MCHC 34.3 RDW 16.6 H Plt Count 167 Seg Neutrophils % 76.9 Sodium 141.9 Potassium 3.8 Chloride 110 H Carbon Dioxide 23 Anion Gap 9 BUN 14 Creatinine 0.60 Est GFR ( Amer) > 60 Glucose 83 Calcium 7.7 L Total Bilirubin 0.6 AST 47 Alkaline Phosphatase 92 Total Protein 4.4 L Albumin 2.1 L 01/20/20 13:00 Troponin I < 0.012 Impressions: Abdomen/Pelvis CT 01/20/20 00:00 IMPRESSION: Possible 15 mm liver cyst. Mild diverticulosis coli with no acute inflammation. Constipation. Chest CT 01/20/20 00:00 IMPRESSION: Pulmonary emphysema. No acute findings in the thorax. Lower Extremity CT 01/20/20 00:00 IMPRESSION: NO ACUTE OR SIGNIFICANT FINDINGS IN THE HIP OR PELVIS. Cervical Spine CT 01/20/20 13:04 IMPRESSION: CHRONIC DEGENERATIVE CHANGES. NO ACUTE FINDINGS. Head CT 01/20/20 13:04 IMPRESSION: Mild involutional changes with no acute intracranial imaging finding. EVIDENCE OF ACUTE STROKE: NO. Chest X-Ray 01/26/20 00:00 IMPRESSION: New right lung opacities, most pronounced in the medial right lung base suspicious for infection. Assessment and Plan - Diagnosis (1) Alcohol withdrawal delirium, acute, hyperactive Is this a current diagnosis for this admission?: Yes (2) Wernicke encephalopathy Is this a current diagnosis for this admission?: Yes (3) HERMELINDO (acute kidney injury) Is this a current diagnosis for this admission?: Yes (4) Aspiration pneumonia Qualifiers: Aspiration pneumonia type: due to gastric secretions Laterality: right Lung location: lower lobe of lung Qualified Code(s): J69.0 - Pneumonitis due to inhalation of food and vomit Is this a current diagnosis for this admission?: Yes (5) Closed head injury Qualifiers: Encounter type: initial encounter Qualified Code(s): S09.90XA - Unspecified injury of head, initial encounter Is this a current diagnosis for this admission?: Yes (6) Hypothermia Qualifiers: Encounter type: initial encounter Qualified Code(s): T68.XXXA - Hypothermia, initial encounter Is this a current diagnosis for this admission?: Yes Plan: He continues on Zosyn for aspiration pneumonia, no hypoxemia. Ammonia level was undetectable. I suspect this patient has Wernicke's encephalopathy and that his hypothermia was due to thiamine deficiency. After he got some thiamine his body temperature improved. His creatinine has responded to IV fluids and his electrolytes are all improving. His calcium corrects to normal due to his low albumin. Continue as needed Ativan for symptoms from alcohol withdrawal. We will continue to give him some IV fluids at more of a maintenance rate and replace his electrolytes as needed, we will also continue with vitamin supplementation. When his withdrawal resolves, we will get a swallow evaluation and hope to get a better determination of his mental status. 01/28/2020-no change in mental status compared to the previous evaluations. Patient is not responding to verbal commands. On nonrebreather. Patient is not taking any feeds. Son is at bedside he is requesting for speech evaluation. Prognosis poor condition is critical family is aware. - Plan Summary Summary: He continues on Zosyn for aspiration pneumonia, no hypoxemia. Ammonia level was undetectable. I suspect this patient has Wernicke's encephalopathy and that his hypothermia was due to thiamine deficiency. After he got some thiamine his body temperature improved. His creatinine has responded to IV fluids and his electrolytes are all improving. His calcium corrects to normal due to his low albumin. Continue as needed Ativan for symptoms from alcohol withdrawal. We will continue to give him some IV fluids at more of a maintenance rate and replace his electrolytes as needed, we will also continue with vitamin supplementation. When his withdrawal resolves, we will get a swallow evaluation and hope to get a better determination of his mental status. - Time Anticipated Discharge Disposition: Hospice Center Anticipated Discharge Timeframe: within 48 hours
[2020-01-28] MEDS: NORMAL SALINE 1000 ML 1,000 ML IV PRN (16:50)
[2020-01-28] MEDS ORDERED: FUROSEMIDE INJ/PF 40 MG/4 ML SDV ONE (18:49)
--- NOTE | 2020-01-28 18:57 | Progress Note ---
Provider Note Provider Note: Informed by patient's nurse that patient desaturated into the 70s. He was on 7 L of oxygen and subsequently placed on a nonrebreather. Notably on chart patient is a DNR/DNI and ongoing discussion is being held about potential for hospice between primary hospitalist and patient's family. On arrival to the scene, patient is simply moving his head from side to side and obtunded. According to patient's primary nurse, this patient mental state for the past few days now. His hypoxia has improved to 96% on the nonrebreather on my arrival and he maintained his saturations at this level. Rest of his vital signs were stable. He is not tachypneic and not working to breathe. Physical exam reveals bilateral crackles worse in his left lung field. He is notably on treatment for aspiration pneumonia with Zosyn. I will give a trial of 40 mg of IV Lasix and hold fluids. Will check ABG and I will sign this out for machine tool operator to follow.
[2020-01-28 20:06] LABS: ARTERIAL BLOOD BASE EXCESS 0.6 mmol/L; ARTERIAL BLOOD H2CO3 1.19 mmol/L (1.05-1.35); ARTERIAL BLOOD HCO3 25.1 mmol/L (20-24); ARTERIAL BLOOD O2 SATURATION 85.4 % (94-98); ARTERIAL BLOOD PCO2 39.6 mmHg (35-45); ARTERIAL BLOOD PH 7.42 (7.35-7.45); ARTERIAL BLOOD TOTAL CO2 26.3 mmol/L (23-27)
[2020-01-28 20:07] LABS: ARTERIAL BLOOD FIO2 100%
[2020-01-29] MEDS: PIPERACILLIN SODIUM/TAZOBACTAM 3.375 GM in NORMAL SALINE 100 ML IV SCH ×2 (02:09→08:42)
[2020-01-29] MEDS: LORAZEPAM INJ 2 MG/1 ML VIAL IV PRN ×4 (02:12→15:20)
[2020-01-29 05:34] LABS: ABSOLUTE BASOPHILS # (AUTO) 0.1 10^3/uL (0.0-0.2); ABSOLUTE EOSINOPHILS # (AUTO) 0.1 10^3/uL (0.0-0.6); ABSOLUTE LYMPHOCYTES (AUTO) 1.2 10^3/uL (0.5-4.7); ABSOLUTE MONOCYTES (AUTO) 1.3 10^3/uL (0.1-1.4); ABSOLUTE NEUT (AUTO) 11.3 10^3/uL (1.7-8.2); BASOPHILS % (AUTO) 0.6 % (0-2); EOSINOPHILS % (AUTO) 0.5 % (0-6); HEMATOCRIT 25.7 % (37.9-51.0); HEMOGLOBIN 8.4 g/dL (13.5-17.0); LYMPHOCYTES % (AUTO) 8.2 % (13-45); MEAN CORPUSCULAR HEMOGLOBIN 35.4 pg (27.0-33.4); MEAN CORPUSCULAR HGB CONC 32.9 g/dL (32.0-36.0); MEAN CORPUSCULAR VOLUME 108 fl (80-97); MONOCYTES % (AUTO) 9.5 % (3-13); PLATELET COUNT 229 10^3/uL (150-450); RED BLOOD COUNT 2.39 10^6/uL (4.35-5.55); RED CELL DISTRIBUTION WIDTH 16.8 % (11.5-14.0); SEGMENTED NEUTROPHILS % (AUTO) 81.2 % (42-78); TOTAL CELLS COUNTED % (AUTO) 100 %
[2020-01-29 06:07] LABS: ALBUMIN 2.2 g/dL (3.5-5.0); ALKALINE PHOSPHATASE 96 U/L (38-126); ANION GAP 9 (5-19); ASPARTATE AMINO TRANSFERASE 42 U/L (17-59); BILIRUBIN,DIRECT 0.3 mg/dL (0.0-0.4); BILIRUBIN,TOTAL 0.7 mg/dL (0.2-1.3); BLOOD UREA NITROGEN 13 mg/dL (7-20); CARBON DIOXIDE 26 mmol/L (22-30); CHLORIDE 108 mmol/L (98-107); GLUCOSE 78 mg/dL (75-110); POTASSIUM 3.6 mmol/L (3.6-5.0); TOTAL PROTEIN 4.7 g/dL (6.3-8.2)
[2020-01-29] MEDS: NICOTINE 14 MG/24 HR PATCH.TD24 TD SCH (09:40)
[2020-01-29] MEDS: THIAMINE HCL 100 MG in NORMAL SALINE 50 ML IV SCH (09:40)
[2020-01-29] MEDS ORDERED: DEXTROSE 50%-WATER 25 GM/50 ML DISP.SYRIN IV PRN ×2 (10:53)
[2020-01-29] MEDS ORDERED: GLUCAGON,HUMAN RECOMB 1 MG INJ SUBCUT PRN (10:53)
[2020-01-29] MEDS ORDERED: DEXTROSE 40% GEL 15 GM TUBE PO PRN ×2 (10:53)
[2020-01-29] MEDS ORDERED: LORAZEPAM INJ 2 MG/1 ML VIAL IV PRN (11:18)
--- NOTE | 2020-01-29 11:22 | PDOC PROGRESS REPORT ---
Subjective Date:: 01/29/20 Subjective:: 64 year old male with PMH of hypertension, alcohol abuse, and chronic low back s /p lumbar fusion surgery and stimulator placement, who presented via EMS due to AMS. History obtained from EMS records, ED attending and family (, son and daughter) due to AMS. Mr. Crystal currently lives alone. He is from his , [place]. He has two adult children, Kirk and Madisyn, who check in on him regularly. All three note that he was seeing a back pain doctor in [place] (name unknown) for chronic LBP. He underwent a procedure in 08/[address] nerve stimulator in his lower back. The stimulator "sticks out" from his lower back and R hip and this actually caused him worse pain than prior to the procedure. Ever since August, he has had "excruciating," and uncontrolled pain as a result. He has gone back and forth to this doctor several times for pain medications, which he was not prescribed. He started "self-medicating" with alcohol, drinking over a gallon of liquor per week. His family note that he has had a physical and mental decline ever since, and that his personality has completely changed. He has become abusive, threatening and mean. He threatened the life of his , Pr[place]ibha, so she left their home and they are now . His children try to check in on him and bring him food regularly, but he does not let them inside his house. His children note that he has recently lost a tremendous amount of weight (unknown quantity). Mr. Crystal normally keeps in touch with his kids via text and phone calls, but had stopped responding to phone messages since 01/17. Therefore, his children went to check on him today, and found him at home, altered, confused and disheveled. His home was in disarray, there was feces "everywhere" and there was reportedly bright red blood all over his pillows and sheets. His children state that the patient has been telling them that he is vomiting and coughing up blood (for an unknown period of time). His notes that he has been incontinent of stool and urine for months, ever since he started drinking in excess, but this has been progressively worsening over the last few months. None of them have ever witnessed him to have a seizure and are not aware of him having any seizures. They all note that he falls very frequently and is very unsteady on his feet. They state that, ever since his nerve stimulator surgery in August, he has had "leg twitches" and that his legs give out when he tries to ambulate. Of note, his family found several containers of untouched food all around his home. It appears that he has had nothing to eat for at least several days. EMS reportedly found him incoherent, hypothermic and hypotensive. 01/21/20-No adverse events overnight. His mental status has improved a little bit, but he still confabulating quite a bit. His daughter was in the room with him and she expressed her concern that this has been developing for several weeks. Apparently he and his a few weeks ago, and he has been by himself most of the time since then. His daughter says that he has been drinking heavily for at least the past several months. She does not know how long the bottles have been accumulating, but when a friend went over to clean up his house recently, she found 21 1/2 gallon empty bottles of liquor. His left on December 25. He apparently has not been eating. His daughter has been bringing food to him periodically but none of it is getting eaten. His daughter says she last saw him on , and last spoke to him Sunday evening. He was found Sunday morning. 01/22/20-No adverse events overnight. No new complaints. Vital signs been stable. He still not eating very much. He asked his nurse today "how much will it cost to get me out of here?" 01/23/20-He started displaying some true signs of alcohol withdrawal last night. No seizures. Has responded well to as needed doses of Ativan. 01/24/20-=No adverse events overnight. Patient remains in mild alcohol withdrawal. Hemodynamically stable. No seizures. 01/25/20No adverse events overnight. Patient remains in mild alcohol withdrawal. Hemodynamically stable. No seizures. He actually responded to me a little bit today, and followed my command to give a cough. I could not get him to repeat that, and his cough was actually fairly weak. No adverse events overnight. Patient remains in mild alcohol withdrawal. Hemodynamically stable. No seizures. He responded again today to verbal command, and I asked him to cough, but he started to cough and then stopped. 01/27/20-No adverse events overnight. Patient remains in mild alcohol withdrawal. Hemodynamically stable. No seizures. He responded again today to verbal command, and I asked him to cough, but he started to cough and then stopped. 01/28/2020-patient is not communicative. Not following the commands. Patient's son is at bedside. He is requesting for speech evaluation. CODE STATUS is DNR/DNI. I discussed about comfort care measures only family is wants take it day by day. 01/29/20-overall prognosis poor condition is critical. Patient was placed on nonrebreather last night because of her hypoxia. I had a long conversation with the family members especially with the patient's daughter she agreed for comfort care measures only. Reason For Visit: HERMELINDO, AMI, SEPSIS Physical Exam Vital Signs: Temp Pulse Resp BP Pulse Ox 97.6 F 75 19 116/65 84 L 01/29/20 07:47 01/29/20 07:47 01/29/20 07:47 01/29/20 07:47 01/29/20 07:47 Intake & Output 01/28/20 01/29/20 01/30/20 06:59 06:59 06:59 Intake Total 1051 1128 Output Total 1000 3200 Balance 51 -2072 Weight 78 kg 76.2 kg General appearance: PRESENT: other - Patient is not communicative. Not following the commands. Head exam: PRESENT: atraumatic Eye exam: PRESENT: PERRLA Ear exam: PRESENT: normal external ear exam Mouth exam: PRESENT: neck supple Teeth exam: PRESENT: poor dentation Neck exam: ABSENT: carotid bruit, JVD, lymphadenopathy, thyromegaly Respiratory exam: PRESENT: accessory muscle use, decreased breath sounds, tachypnea Cardiovascular exam: PRESENT: tachycardia GI/Abdominal exam: PRESENT: normal bowel sounds, soft. ABSENT: distended, g uarding, mass, organolmegaly, rebound, tenderness Rectal exam: PRESENT: deferred Extremities exam: PRESENT: full ROM. ABSENT: calf tenderness, clubbing, pedal edema Neurological exam: PRESENT: altered Psychiatric exam: PRESENT: agitated Results Laboratory Results: 01/29/20 04:43 01/29/20 04:43 01/28/20 01/29/20 01/29/20 19:27 04:43 04:43 WBC 14.0 H RBC 2.39 L Hgb 8.4 L Hct 25.7 L MCV 108 H MCH 35.4 H MCHC 32.9 RDW 16.8 H Plt Count 229 Seg Neutrophils % 81.2 H Carbonic Acid 1.19 HCO3/H2CO3 Ratio 21:1 ABG pH 7.42 ABG pCO2 39.6 ABG pO2 49.0 L ABG HCO3 25.1 H ABG O2 Saturation 85.4 L ABG Base Excess 0.6 FiO2 100% Sodium 143.1 Potassium 3.6 Chloride 108 H Carbon Dioxide 26 Anion Gap 9 BUN 13 Creatinine 0.61 Est GFR ( Amer) > 60 Glucose 78 Calcium 8.0 L Total Bilirubin 0.7 AST 42 Alkaline Phosphatase 96 Total Protein 4.7 L Albumin 2.2 L 01/20/20 13:00 Troponin I < 0.012 Impressions: Abdomen/Pelvis CT 01/20/20 00:00 IMPRESSION: Possible 15 mm liver cyst. Mild diverticulosis coli with no acute inflammation. Constipation. Chest CT 01/20/20 00:00 IMPRESSION: Pulmonary emphysema. No acute findings in the thorax. Lower Extremity CT 01/20/20 00:00 IMPRESSION: NO ACUTE OR SIGNIFICANT FINDINGS IN THE HIP OR PELVIS. Cervical Spine CT 01/20/20 13:04 IMPRESSION: CHRONIC DEGENERATIVE CHANGES. NO ACUTE FINDINGS. Head CT 01/20/20 13:04 IMPRESSION: Mild involutional changes with no acute intracranial imaging finding. EVIDENCE OF ACUTE STROKE: NO. Chest X-Ray 01/26/20 00:00 IMPRESSION: New right lung opacities, most pronounced in the medial right lung base suspicious for infection. Assessment and Plan - Diagnosis (1) Alcohol withdrawal delirium, acute, hyperactive Is this a current diagnosis for this admission?: Yes (2) Wernicke encephalopathy Is this a current diagnosis for this admission?: Yes (3) HERMELINDO (acute kidney injury) Is this a current diagnosis for this admission?: Yes (4) Aspiration pneumonia Qualifiers: Aspiration pneumonia type: due to gastric secretions Laterality: right Lung location: lower lobe of lung Qualified Code(s): J69.0 - Pneumonitis due to inhalation of food and vomit Is this a current diagnosis for this admission?: Yes (5) Closed head injury Qualifiers: Encounter type: initial encounter Qualified Code(s): S09.90XA - Unspecified injury of head, initial encounter Is this a current diagnosis for this admission?: Yes (6) Hypothermia Qualifiers: Encounter type: initial encounter Qualified Code(s): T68.XXXA - Hypo thermia, initial encounter Is this a current diagnosis for this admission?: Yes Plan: He continues on Zosyn for aspiration pneumonia, no hypoxemia. Ammonia level was undetectable. I suspect this patient has Wernicke's encephalopathy and that his hypothermia was due to thiamine deficiency. After he got some thiamine his body temperature improved. His creatinine has responded to IV fluids and his electrolytes are all improving. His calcium corrects to normal due to his low albumin. Continue as needed Ativan for symptoms from alcohol withdrawal. We will continue to give him some IV fluids at more of a maintenance rate and replace his electrolytes as needed, we will also continue with vitamin supplementation. When his withdrawal resolves, we will get a swallow evaluation and hope to get a better determination of his mental status. 01/28/2020-no change in mental status compared to the previous evaluations. Patient is not responding to verbal commands. On nonrebreather. Patient is not taking any feeds. Son is at bedside he is requesting for speech evaluation. Prognosis poor condition is critical family is aware. 01/29/2020-patient's overall condition is critical, prognosis is poor. Family agreed for comfort care measures only. To start on IV morphine 4 mg every 2 hours as needed, Ativan 2 mg IV every 2 hours as needed, scopolamine patch is initiated. Rest of the medications will be discontinued. (7) Comfort measures only status Is this a current diagnosis for this admission?: Yes Plan: Patient's daughter requested for comfort care measures only. - Plan Summary Summary: He continues on Zosyn for aspiration pneumonia, no hypoxemia. Ammonia level was undetectable. I suspect this patient has Wernicke's encephalopathy and that his hypothermia was due to thiamine deficiency. After he got some thiamine his body temperature improved. His creatinine has responded to IV fluids and his electrolytes are all improving. His calcium corrects to normal due to his low albumin. Continue as needed Ativan for symptoms from alcohol withdrawal. We will continue to give him some IV fluids at more of a maintenance rate and replace his electrolytes as needed, we will also continue with vitamin supplementation. When his withdrawal resolves, we will get a swallow evaluation and hope to get a better determination of his mental status. - Time Anticipated Discharge Disposition: Hospice Center Anticipated Discharge Timeframe: within 24 hours
[2020-01-29] MEDS ORDERED: SCOPOLAMINE HYDROBROMIDE 1.5 MG PATCH.TD72 TD SCH (13:00)
[2020-01-29] MEDS: MORPHINE SULFATE 10 MG/ML INJ IV PRN ×2 (15:19→21:58)
[2020-01-30 02:09] VITALS: BP 95/47
--- NOTE | 2020-02-01 02:07 | Death Summary ---
Summary Date : 01/30/20 Time of :: 02:39 - Final Diagnosis (1) HERMELINDO (acute kidney injury) Is this a current diagnosis for this admission?: Yes (2) Alcohol withdrawal delirium, acute, hyperactive Is this a current diagnosis for this admission?: Yes (3) Aspiration pneumonia Is this a current diagnosis for this admission?: Yes (4) Comfort measures only status Is this a current diagnosis for this admission?: Yes (5) Dehydration Is this a current diagnosis for this admission?: Yes (6) Thrombocytopenia Is this a current diagnosis for this admission?: Yes (7) Wernicke encephalopathy Is this a current diagnosis for this admission?: Yes Hospital Course:: Per previous physician: "64 year old male with PMH of hypertension, alcohol abuse, and chronic low back s/p lumbar fusion surgery and stimulator placement, who presented via EMS due to AMS. History obtained from EMS records, ED attending and family (, son and daughter) due to AMS. Mr. Crystal currently lives alone. He is from his , [place]. He has two adult children, Kirk and Madisyn, who check in on him regularly. All three note that he was seeing a back pain doctor in [place] (name unknown) for chronic LBP. He underwent a procedure in 08/[address] nerve stimulator in his lower back. The stimulator "sticks out" from his lower back and R hip and this actually caused him worse pain than prior to the procedure. Ever since August, he has had "excruciating," and uncontrolled pain as a result. He has gone back and forth to this doctor several times for pain medications, which he was not prescribed. He started "self-medicating" with alcohol, drinking over a gallon of liquor per week. His family note that he has had a physical and mental decline ever since, and that his personality has completely changed. He has become abusive, threatening and mean. He threatened the life of his , Pratibha, so she left their home and they are now . His children try to check in on him and bring him food regularly, but he does not let them inside his house. His children note that he has recently lost a tremendous amount of weight (unknown quantity). Mr. Crystal normally keeps in touch with his kids via text and phone calls, but had stopped responding to phone messages since Sunday, 01/17. Therefore, his children went to check on him today, and found him at home, altered, confused and disheveled. His home was in disarray, there was feces "everywhere" and there was reportedly bright red blood all over his pillows and sheets. His children state that the patient has been telling them that he is vomiting and coughing up blood (for an unknown period of time). His notes that he has been incontinent of stool and urine for months, ever since he started drinking in excess, but this has been progressively worsening over the last few months. None of them have ever witnessed him to have a seizure and are not aware of him having any seizures. They all note that he falls very frequently and is very unsteady on his feet. They state that, ever since his nerve stimulator surgery in August, he has had "leg twitches" and that his legs give out when he tries to ambulate. Of note, his family found several containers of untouched food all around his home. It appears that he has had nothing to eat for at least several days. EMS reportedly found him incoherent, hypothermic and hypotensive. 01/21/20-No adverse events overnight. His mental status has improved a little bit, but he still confabulating quite a bit. His daughter was in the room with him and she expressed her concern that this has been developing for several weeks. Apparently he and his a few weeks ago, and he has been by himself most of the time since then. His daughter says that he has been drinking heavily for at least the past several months. She does not know how long the bottles have been accumulating, but when a friend went over to clean up his house recently, she found 21 1/2 gallon empty bottles of liquor. His left on December 25. He apparently has not been eating. His daughter has been bringing food to him periodically but none of it is getting eaten. His daughter says she last saw him on , and last spoke to him Sunday evening. He was found Sunday morning. 01/22/20-No adverse events overnight. No new complaints. Vital signs been stable. He still not eating very much. He asked his nurse today "how much will it cost to get me out of here?" 01/23/20-He started displaying some true signs of alcohol withdrawal last night. No seizures. Has responded well to as needed doses of Ativan. 01/24/20-=No adverse events overnight. Patient remains in mild alcohol withdrawal. Hemodynamically stable. No seizures. 01/25/20No adverse events overnight. Patient remains in mild alcohol withdrawal. Hemodynamically stable. No seizures. He actually responded to me a little bit today, and followed my command to give a cough. I could not get him to repeat that, and his cough was actually fairly weak. No adverse events overnight. Patient remains in mild alcohol withdrawal. Hemodynamically stable. No seizures. He responded again today to verbal command, and I asked him to cough, but he started to cough and then stopped. 01/27/20-No adverse events overnight. Patient remains in mild alcohol withdrawal. Hemodynamically stable. No seizures. He responded again today to verbal command, and I asked him to cough, but he started to cough and then stopped. 01/28/2020-patient is not communicative. Not following the commands. Patient's son is at bedside. He is requesting for speech evaluation. CODE STATUS is DNR/DNI. I discussed about comfort care measures only family is wants take it day by day. 01/29/20-overall prognosis poor condition is critical. Patient was placed on nonrebreather last night because of her hypoxia. I had a long conversation with the family members especially with the patient's daughter she agreed for comfort care measures only." 01/30/2020 patient passed peacefully at 02:39 while on comfort care.
== END 2020-01-30 05:53 | DRG 640 ==
LOC: ER 12:52 → EH 15:41 → 5 21:04
PROVIDERS: ADMIT Hospitalist; ATTEND Internal Medicine
DX: E51.2 Wernicke's encephalopathy (principal); J69.0 Pneumonitis due to inhalation of food and vomit; E43 Unspecified severe protein-calorie malnutrition; N17.9 Acute kidney failure, unspecified; F10.231 Alcohol dependence with withdrawal delirium; T85.840A Pain due to nervous system prosthetic devices, implants and grafts, initial encounter; Z68.1 Body mass index [BMI] 19.9 or less, adult; Z20.828 Contact with and (suspected) exposure to other viral communicable diseases; Z98.1 Arthrodesis status; Y90.0 Blood alcohol level of less than 20 mg/100 ml; E86.0 Dehydration; D69.6 Thrombocytopenia, unspecified; I10 Essential (primary) hypertension; Z60.2 Problems related to living alone; G89.28 Other chronic postprocedural pain; Y75.1 Therapeutic (nonsurgical) and rehabilitative neurological devices associated with adverse incidents; R29.6 Repeated falls; Z66 Do not resuscitate; S09.90XA Unspecified injury of head, initial encounter; S00.431A Contusion of right ear, initial encounter; W19.XXXA Unspecified fall, initial encounter; Y92.009 Unspecified place in unspecified non-institutional (private) residence as the place of occurrence of the external cause; E83.42 Hypomagnesemia; T68.XXXA Hypothermia, initial encounter; D63.8 Anemia in other chronic diseases classified elsewhere
CPT/HCPCS: 36415; 36600; 70450; 71045; 71250; 72125; 74176; 80053; 80202; 80307; 81001; 82140; 82607; 82728; 82746; 82803; 82962; 83540; 83550; 83605; 83615; 83735; 84132; 84484; 85025; 85045; 85379; 85384; 85610; 85730; 86140; 86850; 86900; 86901; 87040; 87077; 87086; 87150; 87186; 87324; 87449; 89055; 93005; 93010; 96365; 99285; J0610; 0241U; C9803; J0692; J1940; J2060; J2270; J2543; J3370; J3411; J3475; J3480; J3490; J7030; J7050; J7060